=== PATIENT | female | born 1945 | race Hispanic/Latino ===

== ENCOUNTER 2018-03-17 08:27 | Inpatient (IN) | payer MEDICARE ==
[2018-03-17 08:27] VITALS: BMI 17.8
--- NOTE | 2018-03-17 09:02 | C.PDOC ---
History Of Present Illness 72 y/o female with a PMHx of emphysema and abdominal aneurysm presents to the ED for evaluation s/p near syncope. Patient states she felt fine going to work today, then developed a headache with gradual onset. No thunderclap onset. Pain is rated 8/10, she states this is not the worst headache of her life. 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 Patient states she then became sweaty throughout and felt near syncopal so she sat down. There was no LOC or fall. Otherwise she denies any chest pain, palpitations, fever, chills, abdominal pain, nausea, vomiting, body aches, or urinary symptoms. States she has somewhat of a chronic cough attributed to her emphysema, denies any sputum production or other associated symptoms. Time Seen by Provider: 03/17/18 08:38 Chief Complaint (Nursing): Dizziness/Lightheaded History Per: Patient History/Exam Limitations: no limitations Onset/Duration Of Symptoms: Hrs Current Symptoms Are (Timing): Still Present Past Medical History Reviewed: Historical Data, Nursing Documentation, Vital Signs Vital Signs: Last Vital Signs Temp 97.5 F L 03/17/18 08:42 Pulse 68 03/17/18 08:42 Resp 20 03/17/18 08:42 BP 129/52 L 03/17/18 08:42 Pulse Ox 90 L 03/17/18 08:42 - Medical History PMH: Emphysema Other PMH: Abdominal aneurysm Surgical History: Tonsillectomy - [facility] Procedures LOCAL DESTR OVA LES NEC (09/17/12) OTH LYSIS-PERITONEAL ADHES (09/17/12) OTH REMOVE BOTH OVARIES/TUBES (09/17/12) SM BOWEL SEGMENT ISOLAT (09/17/12) Family History: States: Unknown Family Hx - Social History Hx Alcohol Use: No Hx Substance Use: No - Immunization History Hx Tetanus Toxoid Vaccination: No Hx Influenza Vaccination: No Hx Pneumococcal Vaccination: Yes Review Of Systems Except As Marked, All Systems Reviewed And Found Negative. Constitutional: Positive for: Sweats. Negative for: Fever, Chills Eyes: Negative for: Vision Change Cardiovascular: Negative for: Chest Pain, Palpitations Respiratory: Positive for: Cough (chronic per pt). Negative for: Pleuritic Pain, Sputum Gastrointestinal: Negative for: Nausea, Vomiting Musculoskeletal: Negative for: Neck Pain Neurological: Positive for: Headache, Dizziness (near syncopal). Negative for: Weakness, Numbness, Change in Speech, Confusion, Altered Mental Status Physical Exam - Physical Exam Appears: Non-toxic, No Acute Distress, Other (Thin, frail appearing, speaking in full sentences) Skin: Warm, Dry, No Rash Head: Atraumatic, Normacephalic Eye(s): bilateral: Normal Inspection, PERRL, EOMI Oral Mucosa: Dry (and pink) Neck: Normal ROM Chest: Symmetrical Cardiovascular: Rhythm Regular, No Murmur Respiratory: Decreased Breath Sounds (on the right), Rales (Crackles to left base) Gastrointestinal/Abdominal: Bowel Sounds (active), Soft, No Tenderness, No Mass, No Distention Back: Normal Inspection, No CVA Tenderness, No Vertebral Tenderness Extremity: Bilateral: Atraumatic, No Pedal Edema, Normal Color And Temperature Neurological/Psych: Oriented x3, Normal Cranial Nerves ED Course And Treatment - Laboratory Results Result Diagrams: 03/19/18 06:08 03/19/18 06:08 ECG: Interpreted By Me, Viewed By Me ECG Rhythm: Sinus Rhythm ECG Interpretation: No Acute Changes Interpretation Of ECG: NSR @ 66 bpm, normal intervals, normal axis, no ST el evations O2 Sat by Pulse Oximetry: 90 Pulse Ox Interpretation: Abnormal - CT Scan/US CT Head (Code Stroke) Other Rad Studies (CT/US): Read By Radiologist, Radiology Report Reviewed CT/US Interpretation: Accession No. : [id number]. Patient Name / ID : POLINA DOS SANTOS I / [id number]. Exam Date : 03/17/2018 09:46:08 ( Approved ). Study Comment : Sex / Age : F / [id number]. Creator : Tejinder Contreras MD. Dictator : Tejinder Contreras MD. Ornamenter : Mop Handle Assembler : Tejinder Contreras MD. Approver2 : Report Date : 03/17/2018 10:27:41. My Comment : . Date of service: 03/17/2018. PROCEDURE: CT HEAD WITHOUT CONTRAST. HISTORY: Code Stroke. COMPARISON: None available. TECHNIQUE: Axial computed tomography images were obtained through the head/brain without intravenous contrast. Radiation dose: Total exam DLP = 920.08 mGy-cm. This CT exam was performed using one or more of the following dose reduction techniques: Automated exposure control, adjustment of the mA and/or kV according to patient size, and/or use of iterative reconstruction technique. FINDINGS: HEMORRHAGE: There is extensive hemorrhage which predominates subarachnoid. Subarachnoid hemorrhage is identified at the interhemispheric fissure and sylvian fissures bilaterally with intraventricular hemorrhage distending the left lateral ventricle mildly as well as the 3rd ventricle minimally. Hemorrhage identified within the right lateral ventricle on a wemw-bb-vtoqpjfe basis and moderately distends the 4th ventricle. Mild hydrocephalus felt to present distending the frontal horns of the bilateral lateral ventricles, right greater than left with the 4th ventricle distended moderately. Intraparenchymal hemorrhage is identified at the inferomedial left frontal lobe. No definite additional intraparenchymal hemorrhage. A hury-eo-ialupqla hemorrhage is seen in the basilar cisterns as well as suprasellar cistern without deformity of the carrie or medulla. Mild rightward midline shift of 4.2 mm. Consider potential aneurysm rupture as etiology. Underlying lesion not excluded. Limited edema is seen surrounding the low in left frontal intraparenchymal hemorrhage. No definite a dditional parenchymal edema appreciable. BRAIN: See hemorrhage section above. VENTRICLES: See hemorrhage section above. CALVARIUM: Unremarkable. PARANASAL SINUSES: Unremarkable as visualized. No significant inflammatory changes. MASTOID AIR CELLS: Unremarkable as visualized. No inflammatory changes. OTHER FINDINGS: None. IMPRESSION: Extensive subarachnoid hemorrhage is identified particularly involving the bilateral frontal and temporal lobes but also into the basilar cisterns as discussed above. Intraventricular hemorrhage mildly distends the left lateral ventricle body and the 4th ventricle but also involves the right lateral ventricle and 3rd ventricles. Hydrocephalus appears to be developing due to intraventricular hemorrhage. There is a mild rightward midline shift of 4.2 mm. There is no deformity of the brainstem or edema at this time. Left frontal intraparenchymal hemorrhage exhibits limited local edema. Continued clinical and cross-sectional imaging follow-up are advised. Findings discussed with Dr. Funk with written down and read back verification, 03/03, 9:56 a.m.. Critical Care Time - Critical Care Note Total Time (in mins): 90 Documented critical care: time excludes all time spent performing seperately billable procedures. Endotracheal Intubation - Endotracheal Intubation Intubated With ETT Size: 8 Blade Type Used: Curved Indication: Airway Protection Intubated: Orally Pre-Intubation Airway Assessment: Ventilated And Oxygenated Medications Used During Pre-Intubation: Etomidate Paralyzed With: Succinylcholine Post-Intubation Assessment: ETT Secured AT (cm): (19), Breath Sounds Equal Bilat, Placement Confirmed Via CXR, Color Change W/End Tidal CO2 Detector Medical Decision Making Medical Decision Making: Impression: Headache, work-up for near syncope Plan: - EKG - Chest x-ray - Labs - CT Head - 975 mg PO Tylenol Progress/Updates: 9:18 Called to bedside, patient became unresponsive. Pupils equal and reactive. HR dropped to 40s, patient noted to be hypotensive and foaming at the mouth. Patient intubated with 8-0 ETT, direct laryngoscopy. Respiratory at bedside. Code Stroke initiated. Patient immediately en route to CT scan. 9:[address] Taylor, who recommends 1000mg Keppra and CTA of the head/neck. 9:48 Received call from community planning technician, + large subarachnoid hemorrhage on scan. While at CT, patient became bradycardic and was brought back down prior to CTA being done. Dr. Taylor notified, still wants CTA to rule out aneurysm. Cancelled order for head/neck, will order new CTA. 10:10 CT Head report still not available, paged radiology. 10:28 CT report published. Paged Dr. Bazan/Alfredo for neurosurg consult. Awaiting call back. 10:40 Received call back from Dr. Fuentes, requests that patient be held in the ED - He is 3 minutes away and is coming to evaluate patient 10:55 Dr. Fuentes is at bedside, evaluating patient. 10:59 Dr. Fuentes spoke to the family re severity of brain injury and poor prognosis. Family informed Dr. Fuentes that patient has DNR at home. Instructed family that they either need to bring the document to the hospital or admitting doctor will have them complete a new one. Paged medicine. Will admit patient to medical service, discussed with Dr. Hawley and accepted. 11:05 Dr. Tavera pageslick for ICU consult, will come to evaluate patient in the ED. 11:15 Dr. Tavera evaluating patient at bedside. Patient accepted to ICU for diagnosis of intracranial hemorrhage. Disposition Counseled Patient/Family Regarding: Studies Performed, Diagnosis - Disposition Disposition: HOSPITALIZED Disposition Time: 11:15 Condition: CRITICAL - POA Core Measure Indicators: Code Stroke - Clinical Impression Clinical Impression: Subarachnoid hemorrhage - Scribe Statement The provider has reviewed the documentation as recorded by the Esther Morrison Provider Attestation: All medical record entries made by the Esther were at my direction and personall y dictated by me. I have reviewed the chart and agree that the record accurately reflects my personal performance of the history, physical exam, medical decision making, and the department course for this patient. I have also personally directed, reviewed, and agree with the discharge instructions and disposition.
[2018-03-17] MEDS ORDERED: Succinylcholine Chloride 20 mg/ml Syr (5 ml) IV STA (09:10)
[2018-03-17 09:25] LABS: BASO # 0.1 K/uL (0.0-0.2); BASO % 0.8 % (0.0-2.0); EOS # 0.2 K/uL (0.0-0.7); EOS % 3.2 % (0.0-4.0); HEMOGLOBIN 13.1 g/dL (11.0-16.0); LYMPH # 1.8 K/uL (1.0-4.3); LYMPH % 24.6 % (20.0-40.0); MEAN CORPUSCULAR HEMOGLOBIN 28.8 pg (27.0-31.0); MEAN CORPUSCULAR HGB CONC 33.1 g/dL (33.0-37.0); MEAN PLATELET VOLUME 8.3 fL (7.2-11.7); MONO # 0.5 K/uL (0.0-0.8); MONO % 7.5 % (0.0-10.0); NEUT # 4.6 K/uL (1.8-7.0); NEUT % 63.9 % (50.0-75.0); NRBC % 0.1 % (0.0-2.0); RBC 4.54 Mil/uL (3.80-5.20); RED CELL DISTRIBUTION WIDTH 13.5 % (11.5-14.5); WHITE BLOOD COUNT 7.2 K/uL (4.8-10.8)
[2018-03-17 09:34] LABS: INR 1.1; PROTHROMBIN TIME 11.6 SECONDS (9.7-12.2)
[2018-03-17 09:46] LABS: ALB/GLOB RATIO 1.4 (1.0-2.1); ALBUMIN 3.8 g/dL (3.5-5.0); ALT/SGPT 21 U/L (9-52); AST/SGOT 19 U/L (14-36); BLOOD UREA NITROGEN 17 mg/dL (7-17); CALCIUM 8.5 mg/dl (8.6-10.4); GFR NON-AFRICAN AMERICAN > 60
[2018-03-17] MEDS ORDERED: Iodixanol 320 MG/ML 100 ML BOTTLE IV ONE (09:47)
[2018-03-17] MEDS ORDERED: Etomidate 20 mg/10ml Inj IV ONE (10:31)
--- NOTE | 2018-03-17 10:33 | CT ---
Date of service: 03/17/2018 PROCEDURE: CT HEAD WITHOUT CONTRAST. HISTORY: Code Stroke COMPARISON: None available. TECHNIQUE: Axial computed tomography images were obtained through the head/brain without intravenous contrast. Radiation dose: Total exam DLP = 920.08 mGy-cm. This CT exam was performed using one or more of the following dose reduction techniques: Automated exposure control, adjustment of the mA and/or kV according to patient size, and/or use of iterative reconstruction technique. FINDINGS: HEMORRHAGE: There is extensive hemorrhage which predominates subarachnoid. Subarachnoid hemorrhage is identified at the interhemispheric fissure and sylvian fissures bilaterally with intraventricular hemorrhage distending the left lateral ventricle mildly as well as the 3rd ventricle minimally. Hemorrhage identified within the right lateral ventricle on a fznh-zm-zpxolxfg basis and moderately distends the 4th ventricle. Mild hydrocephalus felt to present distending the frontal horns of the bilateral lateral ventricles, right greater than left with the 4th ventricle distended moderately. Intraparenchymal hemorrhage is identified at the inferomedial left frontal lobe. No definite additional intraparenchymal hemorrhage. A bfvm-fl-hfpxdmva hemorrhage is seen in the basilar cisterns as well as suprasellar cistern without deformity of the carrie or medulla. Mild rightward midline shift of 4.2 mm. Consider potential aneurysm rupture as etiology. Underlying lesion not excluded. Limited edema is seen surrounding the low in left frontal intraparenchymal hemorrhage. No definite additional parenchymal edema appreciable. BRAIN: See hemorrhage section above. VENTRICLES: See hemorrhage section above. CALVARIUM: Unremarkable. PARANASAL SINUSES: Unremarkable as visualized. No significant inflammatory changes. MASTOID AIR CELLS: Unremarkable as visualized. No inflammatory changes. OTHER FINDINGS: None. IMPRESSION: Extensive subarachnoid hemorrhage is identified particularly involving the bilateral frontal and temporal lobes but also into the basilar cisterns as discussed above. Intraventricular hemorrhage mildly distends the left lateral ventricle body and the 4th ventricle but also involves the right lateral ventricle and 3rd ventricles. Hydrocephalus appears to be developing due to intraventricular hemorrhage. There is a mild rightward midline shift of 4.2 mm. There is no deformity of the brainstem or edema at this time. Left frontal intraparenchymal hemorrhage exhibits limited local edema. Continued clinical and cross-sectional imaging follow-up are advised. Findings discussed with Dr. Funk with written down and read back verification, 03/17/2018, 9:56 a.m..
--- NOTE | 2018-03-17 11:09 | RAD ---
Date of service: 03/17/2018 HISTORY: Code Stroke COMPARISON: No prior. FINDINGS: LUNGS: Limited exam study rotated towards the left. As well as patient's obvious severe dextroscoliosis No gross consolidation seen. Probable biapical pleural thickening. The endotracheal tube tip approximately 5 cm from the jaime. PLEURA: No significant pleural effusion identified, no pneumothorax apparent. CARDIOVASCULAR: No aortic atherosclerotic calcification present. Cardiomegaly suspect No significant appearing pulmonary venous congestion. OSSEOUS STRUCTURES: Severe dextroscoliosis. VISUALIZED UPPER ABDOMEN: NG tube tip in stomach OTHER FINDINGS: None. IMPRESSION: Limited exam for reasons stated above. No acute cardiopulmonary pathology noted. Other findings as above.
[2018-03-17] MEDS ORDERED: Sodium Chloride 0.9% 1,000 ML IV ONE (12:01)
[2018-03-17] MEDS ORDERED: Sodium Chloride 0.9% 1,000 ML ONE (12:07)
[2018-03-17] MEDS ORDERED: Petrolatum Oint Foilpak (5 gm) ONE (13:11)
--- NOTE | 2018-03-17 13:48 | CP.PCM.CON ---
History of Present Illness - History of Present Illness History of Present Illness: 72 yr old woman who came in with a mild diaphoresis, and headache all over head, who was at work as a food prep production assistant. She came in and was speaking to attending physician DR. Funk, when she suddenly became unresponsive. CT head was done and shows massive hemorrhage, that appears to be an aneurysmal burst. She has been terminally extubated and has brain stem reflexes intact. ROS: not obtainable. PMH/PSH: as per chart FH/SH; Has several children. No tobacco, no etoh. All: benzocaine. On exam: +corneals, +gag, +dolls eyes. posturing to sternal rub. no spontaneous movement. +1 dtr ul and ll bl. Toes downgoing. NO clonus. Past Patient History - Past Social History Smoking Status: Heavy Smoker > 10 Cigarettes Daily - PULMONARY Hx Emphysema: Yes - GASTROINTESTINAL Other/Comment: gastric aneurysm - PSYCHIATRIC Hx Substance Use: No - SURGICAL HISTORY Hx Tonsillectomy: Yes - ANESTHESIA Hx Anesthesia: No Hx Anesthesia Reactions: No Meds Allergies/Adverse Reactions: Allergies Allergy/AdvReac Type Severity Reaction Status Date / Time benzocaine Allergy RASH Verified 03/17/18 08:37 - Medications Medications: Current Medications Levetiracetam 1,000 mg/ (Dextrose) 110 mls @ 420 mls/hr IVPB Q12H ANNALISE Last Admin: 03/17/18 10:41 Dose: 420 mls/hr Results - Vital Signs Recent Vital Signs: Last Vital Signs Temp 97.5 F L 03/17/18 08:42 Pulse 78 03/17/18 13:15 Resp 14 03/17/18 13:15 BP 119/50 L 03/17/18 13:15 Pulse Ox 99 03/17/18 13:15 - Labs Result Diagrams: 03/18/18 06:56 03/18/18 06:56 Labs: Laboratory Results - last 24 hr 03/17/18 03/17/18 03/17/18 08:41 09:17 09:17 WBC 7.2 RBC 4.54 Hgb 13.1 Hct 39.5 MCV 87.0 MCH 28.8 MCHC 33.1 RDW 13.5 Plt Count 374 D MPV 8.3 Neut % (Auto) 63.9 Lymph % (Auto) 24.6 Dukes % (Auto) 7.5 Eos % (Auto) 3.2 Baso % (Auto) 0.8 Neut # (Auto) 4.6 Lymph # (Auto) 1.8 Dukes # (Auto) 0.5 Eos # (Auto) 0.2 Baso # (Auto) 0.1 PT 11.6 INR 1.1 APTT 31 Sodium Potassium Chloride Carbon Dioxide Anion Gap BUN Creatinine Est GFR ( Amer) Est GFR (Non-Af Amer) POC Glucose (mg/dL) 123 H Random Glucose Hemoglobin A1c Calcium Total Bilirubin AST ALT Alkaline Phosphatase Total Creatine Kinase CK-MB (Mass) Troponin I Total Protein Albumin Globulin Albumin/Globulin Ratio Blood Type Antibody Screen 03/17/18 03/17/18 03/17/18 09:17 09:19 09:28 WBC RBC Hgb Hct MCV MCH MCHC RDW Plt Count MPV Neut % (Auto) Lymph % (Auto) Dukes % (Auto) Eos % (Auto) Baso % (Auto) Neut # (Auto) Lymph # (Auto) Dukes # (Auto) Eos # (Auto) Baso # (Auto) PT INR APTT Sodium 137 Potassium 4.5 Chloride 102 Carbon Dioxide 31 H Anion Gap 9 L BUN 17 Creatinine 0.6 L Est GFR ( Amer) > 60 Est GFR (Non-Af Amer) > 60 POC Glucose (mg/dL) 112 H Random Glucose 141 H D Hemoglobin A1c 5.7 Calcium 8.5 L Total Bilirubin 0.3 AST 19 ALT 21 Alkaline Phosphatase 74 Total Creatine Kinase 44 CK-MB (Mass) 0.50 Troponin I < 0.0120 Total Protein 6.5 Albumin 3.8 Globulin 2.7 Albumin/Globulin Ratio 1.4 Blood Type Antibody Screen 03/17/18 09:35 WBC RBC Hgb Hct MCV MCH MCHC RDW Plt Count MPV Neut % (Auto) Lymph % (Auto) Dukes % (Auto) Eos % (Auto) Baso % (Auto) Neut # (Auto) Lymph # (Auto) Dukes # (Auto) Eos # (Auto) Baso # (Auto) PT INR APTT Sodium Potassium Chloride Carbon Dioxide Anion Gap BUN Creatinine Est GFR ( Amer) Est GFR (Non-Af Amer) POC Glucose (mg/dL) Random Glucose Hemoglobin A1c Calcium Total Bilirubin AST ALT Alkaline Phosphatase Total Creatine Kinase CK-MB (Mass) Troponin I Total Protein Albumin Globulin Albumin/Globulin Ratio Blood Type AB POSITIVE Antibody Screen Negative - EKG Data When Compared to Previous EKG: No Significant Change Assessment & Plan - Assessment and Plan (Free Text) Assessment: CT head: shows intraventricular bleed that is present in bilateral ventricles and in the fourth ventricle as well. +subarachnoid component. Spoke to family. No intubation and DNR DNI. Neurosurgery states no intervention at this time. A/P: 72 yr old woman with most likely Left MCA aneurysmal bleed with poor prognosis, who is now DNR DNI Plan: 1 Recommend FFP [address] head[address] Thank you Dr. Taylor Neurology
--- NOTE | 2018-03-17 14:13 | CP.PCM.CON ---
<Fazal Suresh - Last Filed: 03/17/18 15:10> History of Present Illness - History of Present Illness History of Present Illness: PGY-1 ICU consult note for Dr Tavera service Patient is a 72 year old female with pmhx of emphysema, abdominal aneurysm and tonsillectomy, was seen in the ED after code sepsis was called on patient. Patient is not verbal, family, including grand daughter Aracelis Loomis, at bedside, contributes to HPI. Patient was at work this morning when she had a headache that worsened with time. Patient had near syncopal episodes and came to ER. Patient did not have a fall or LOC. Patient became unresponsive and hypotensive at ER, patient intubated, code stroke was called, brought to CT scan which shows large subarachnoid hemorrhage, CTA was to be done, when she became bradycardia on route to CTA. Patient remains not responding, intubated, with family at bedside. ROS unattainable due to patient status. PMHX: Emphysema, abdominal aneurysm ShX: Tonsillectomy All: benzocaine Meds: see record Sochx: unttainable due to patient's status Past Patient History - Past Social History Smoking Status: Heavy Smoker > 10 Cigarettes Daily - PULMONARY Hx Emphysema: Yes - GASTROINTESTINAL Other/Comment: gastric aneurysm - PSYCHIATRIC Hx Substance Use: No - SURGICAL HISTORY Hx Tonsillectomy: Yes - ANESTHESIA Hx Anesthesia: No Hx Anesthesia Reactions: No Meds Allergies/Adverse Reactions: Allergies Allergy/AdvReac Type Severity Reaction Status Date / Time benzocaine Allergy RASH Verified 03/17/18 08:37 Penicillins Allergy RASH Verified 03/18/18 13:38 - Medications Medications: Current Medications Levetiracetam 1,000 mg/ (Dextrose) 110 mls @ 420 mls/hr IVPB Q12H [facility] Last Admin: 03/17/18 10:41 Dose: 420 mls/hr Physical Exam - Constitutional Appears: In Acute Distress - Head Exam Head Exam: ATRAUMATIC - Eye Exam Eye Exam: Normal appearance. absent: EOMI - ENT Exam ENT Exam: Mucous Membranes Dry - Neck Exam Neck exam: Negative for: Full Rom - Respiratory Exam Respiratory Exam: Accessory Muscle Use, Rhonchi, Respiratory Distress. absent: Wheezes - Cardiovascular Exam Cardiovascular Exam: Irregular Rhythm - GI/Abdominal Exam GI & Abdominal Exam: Soft - Extremities Exam Extremities exam: Positive for: normal inspection. Negative for: full ROM - Back Exam Back exam: NORMAL INSPECTION - Neurological Exam Additional comments: not Alert, not Oriented, not awake, non verbal Corneal reflex intact does not respond to sternal rub - Expanded Neurological Exam Expanded Coma Scale Eye Opening: None Coma Scale Motor Response: None Coma Scale Verbal: None Coma Scale Total: 3 - Skin Skin Exam: Dry Results - Vital Signs Recent Vital Signs: Last Vital Signs Temp 97.5 F L 03/17/18 08:42 Pulse 78 03/17/18 13:15 Resp 14 03/17/18 13:15 BP 119/50 L 03/17/18 13:15 Pulse Ox 90 L 03/17/18 13:39 - Labs Result Diagrams: 03/17/18 09:17 03/17/18 09:17 Labs: Laboratory Results - last 24 hr 03/17/18 03/17/18 03/17/18 08:41 09:17 09:17 WBC 7.2 RBC 4.54 Hgb 13.1 Hct 39.5 MCV 87.0 MCH 28.8 MCHC 33.1 RDW 13.5 Plt Count 374 D MPV 8.3 Neut % (Auto) 63.9 Lymph % (Auto) 24.6 [place] % (Auto) 7.5 Eos % (Auto) 3.2 Baso % (Auto) 0.8 Neut # (Auto) 4.6 Lymph # (Auto) 1.8 [place] # (Auto) 0.5 Eos # (Auto) 0.2 Baso # (Auto) 0.1 PT 11.6 INR 1.1 APTT 31 Sodium Potassium Chloride Carbon Dioxide Anion Gap BUN Creatinine Est GFR ( Amer) Est GFR (Non-Af Amer) POC Glucose (mg/dL) 123 H Random Glucose Hemoglobin A1c Calcium Total Bilirubin AST ALT Alkaline Phosphatase Total Creatine Kinase CK-MB (Mass) Troponin I Total Protein Albumin Globulin Albumin/Globulin Ratio Blood Type Antibody Screen 03/17/18 03/17/18 03/17/18 09:17 09:19 09:28 WBC RBC Hgb Hct MCV MCH MCHC RDW Plt Count MPV Neut % (Auto) Lymph % (Auto) [place] % (Auto) Eos % (Auto) Baso % (Auto) Neut # (Auto) Lymph # (Auto) [place] # (Auto) Eos # (Auto) Baso # (Auto) PT INR APTT Sodium 137 Potassium 4.5 Chloride 102 Carbon Dioxide 31 H Anion Gap 9 L BUN 17 Creatinine 0.6 L Est GFR ( Amer) > 60 Est GFR (Non-Af Amer) > 60 POC Glucose (mg/dL) 112 H Random Glucose 141 H D Hemoglobin A1c 5.7 Calcium 8.5 L Total Bilirubin 0.3 AST 19 ALT 21 Alkaline Phosphatase 74 Total Creatine Kinase 44 CK-MB (Mass) 0.50 Troponin I < 0.0120 Total Protein 6.5 Albumin 3.8 Globulin 2.7 Albumin/Globulin Ratio 1.4 Blood Type Antibody Screen 03/17/18 09:35 WBC RBC Hgb Hct MCV MCH MCHC RDW Plt Count MPV Neut % (Auto) Lymph % (Auto) [place] % (Auto) Eos % (Auto) Baso % (Auto) Neut # (Auto) Lymph # (Auto) [place] # (Auto) Eos # (Auto) Baso # (Auto) PT INR APTT Sodium Potassium Chloride Carbon Dioxide Anion Gap BUN Creatinine Est GFR ( Amer) Est GFR (Non-Af Amer) POC Glucose (mg/dL) Random Glucose Hemoglobin A1c Calcium Total Bilirubin AST ALT Alkaline Phosphatase Total Creatine Kinase CK-MB (Mass) Troponin I Total Protein Albumin Globulin Albumin/Globulin Ratio Blood Type AB POSITIVE Antibody Screen Negative Assessment & Plan - Assessment and Plan (Free Text) Assessment: 72 year old female pmhx of emphysema, and aneurysm came to ED for headaches, become unresponsive in ED. head CT shows subarachnoid hemorrhage, intraverntricular hemorrhage, code stroke called, Patient intubated at time of encounter. no surgical intervention at this time as per neurosx Plan: Neuro: - not awake, not oriented, intubated at time of encounter - Family requested to terminally extubate patient - Boni ford Ms Aracelis Branch signed extubation form, in chart - will continue supportive tx - Dr Branch - no surgical intervention for patient - Neuro consult - Dr Taylor Cardio - On tele Respiratory - Terminally extubation at family's request - Desaturating - patient 89% O2 sat PPX - patient is DNR/DNI as per family request - Copy in chart/ order placed Dispo: As per family request, pt extubated, supportive tx as per medical team, no surgical intervention, patient does not need ICU at this time. grand liliana Low, is pts decision maker for patient Plan discussed with Dr Liang Suresh, PGY-1 - Date & Time Date: 03/17/18 Time: 13:00 <Luke Tavera - Last Filed: 03/18/18 17:01> Meds - Medications Medications: Current Medications Albuterol/Ipratropium (Duoneb 3 Mg/0.5 Mg (3 Ml) Ud) 3 ml INH RQ6 [facility] Last Admin: 03/18/18 14:30 Dose: 3 ml Levetiracetam 1,000 mg/ (Dextrose) 110 mls @ 420 mls/hr IVPB Q12H [facility] Last Admin: 03/18/18 10:31 Dose: 420 mls/hr Sodium Chloride (Sodium Chloride 0.9%) 1,000 mls @ 50 mls/hr IV .Q20H [facility] Last Admin: 03/18/18 16:42 Dose: Not Given Results - Vital Signs Recent Vital Signs: Last Vital Signs Temp 98.3 F 03/18/18 16:00 Pulse 58 L 03/18/18 16:00 Resp 24 03/18/18 16:00 BP 177/83 H 03/18/18 15:57 Pulse Ox 95 03/18/18 16:00 - Labs Result Diagrams: 03/18/18 06:56 03/18/18 06:56 Labs: Laboratory Results - last 24 hr 03/18/18 03/18/18 03/18/18 06:56 06:56 06:56 WBC 12.8 H D RBC 4.08 Hgb 11.7 Hct 35.6 MCV 87.3 MCH 28.7 MCHC 32.9 L RDW 14.3 Plt Count 328 MPV 8.5 Sodium 137 Potassium 3.7 Chloride 107 Carbon Dioxide 23 Anion Gap 10 BUN 12 Creatinine 0.8 Est GFR ( Amer) > 60 Est GFR (Non-Af Amer) > 60 POC Glucose (mg/dL) Random Glucose 128 H Hemoglobin A1c 5.7 Calcium 8.3 L Iron TIBC % Saturation Total Bilirubin 0.5 Direct Bilirubin 0.3 AST 30 ALT 28 Alkaline Phosphatase 74 Total Protein 6.1 L Albumin 3.5 Globulin 2.6 Albumin/Globulin Ratio 1.4 Triglycerides 66 Cholesterol 166 LDL Cholesterol Direct 110 HDL Cholesterol 55 Vitamin B12 172 L Folate 14.7 TSH 3rd Generation 0.26 L 01/16/19 01/16/19 01/16/19 06:56 07:24 16:27 WBC RBC Hgb Hct MCV MCH MCHC RDW Plt Count MPV Sodium Potassium Chloride Carbon Dioxide Anion Gap BUN Creatinine Est GFR ( Amer) Est GFR (Non-Af Amer) POC Glucose (mg/dL) 125 H 123 H Random Glucose Hemoglobin A1c Calcium Iron 17 L TIBC 242 L % Saturation 7 L Total Bilirubin Direct Bilirubin AST ALT Alkaline Phosphatase Total Protein Albumin Globulin Albumin/Globulin Ratio Triglycerides Cholesterol LDL Cholesterol Direct HDL Cholesterol Vitamin B12 Folate TSH 3rd Generation Attending/Attestation - Attestation I have personally seen and examined this patient.: Yes I have fully participated in the care of the patient.: Yes I have reviewed all pertinent clinical information: Yes Notes (Text): Patient seen and examined in the emergency room Admitted after she passed out with large intracerebral bleed and blood in the ventricles Patient was terminally extubated as per family request and patient wishes Family signed DNR DNI Seen by neurosurgery with no neurosurgical intervention
[2018-03-17] MEDS: Sodium Chloride 0.9% 1,000 ML IV SCH (22:12)
[2018-03-18 07:12] LABS: HEMOGLOBIN 11.7 g/dL (11.0-16.0); MEAN CELL VOLUME 87.3 fL (81.0-99.0); MEAN CORPUSCULAR HEMOGLOBIN 28.7 pg (27.0-31.0); MEAN CORPUSCULAR HGB CONC 32.9 g/dL (33.0-37.0); MEAN PLATELET VOLUME 8.5 fL (7.2-11.7); RBC 4.08 Mil/uL (3.80-5.20); RED CELL DISTRIBUTION WIDTH 14.3 % (11.5-14.5)
[2018-03-18 07:17] LABS: WHITE BLOOD COUNT 12.8 K/uL (4.8-10.8)
[2018-03-18 07:38] LABS: ALB/GLOB RATIO 1.4 (1.0-2.1); ALBUMIN 3.5 g/dL (3.5-5.0); ALT/SGPT 28 U/L (9-52); AST/SGOT 30 U/L (14-36); BILIRUBIN,DIRECT 0.3 mg/dL (0.0-0.4); BLOOD UREA NITROGEN 12 mg/dL (7-17); CALCIUM 8.3 mg/dl (8.6-10.4); GFR NON-AFRICAN AMERICAN > 60; HDL CHOLESTEROL 55 mg/dL (30-70)
[2018-03-18 07:45] LABS: IRON 17 ug/dL (37-170)
[2018-03-18 07:48] LABS: LDL CHOLESTEROL 110 mg/dL (0-129)
[2018-03-18 07:53] LABS: % IRON SATURATION 7 (20-55); TOTAL IRON BINDING CAPACITY 242 ug/dL (250-450)
[2018-03-18 08:34] LABS: FOLATE 14.7 ng/mL
--- NOTE | 2018-03-18 09:36 | HP ---
The patient was seen and examined at bedside on 03/17/2018. CHIEF COMPLIANT: Near syncope. HISTORY OF PRESENT ILLNESS: Ms. Simran Roberts is a 72-year-old female with past medical history of emphysema, abdominal aneurysm, came to emergency department for evaluation of having near syncope. The patient states that she felt fine, went to work today. She was working at school cafeteria. Then, she developed headache with gradual onset. No thunderclap onset. Pain started like at 8/10. She states this is not the worst headache of her life. No pain medication was taken. The patient states that she then became sweaty throughout and felt near syncope, so she sat down. There was no loss of consciousness so far. Denies any chest pain, palpitation, chills, abdominal pain, and nausea, vomiting, diarrhea in the emergency room. The patient states that she has somewhat chronic cough attributed to her emphysema. Denies any sputum production in the emergency room. The patient had a near syncope episode and came to the emergency room. The patient did not have a fall. As mentioned, the patient became unresponsive and hypertensive in the emergency room. The patient was intubated. Code stroke was called, brought to CAT scan, which showed large subarachnoid hemorrhage. CTA was done when she became bradycardic on routine to CTA. The patient remained unresponsive, intubated. The patient has 5 children, I spoke to the middle one. According to son, the sister and sister's daughter, niece, make the patient DNR/DNI. According to the patient's son and ER, the patient never wanted intubation, but when I saw the patient, the patient was extubated and was on the floor. Discussion done with patient's son and hospice consult called. PAST MEDICAL HISTORY: Emphysema and abdominal aneurysm. PAST SURGICAL HISTORY: Tonsillectomy. ALLERGIES: BENZOCAINE. MEDICATION: Dextrose. PHYSICAL EXAMINATION: VITAL SIGNS: Temperature 98.5, pulse 80 , blood pressure 133/53, respiratory rate 20, nonlabored, deep and irregular, and oxygenation 88%. HEENT: Head normocephalic and atraumatic. I cannot see any signs of an injury on the head. Eyes closed. Nose patent. Mucous membrane moist. NECK: Supple. No carotid bruits or thyromegaly. CHEST: Bilaterally symmetrical. HEART: S1 and S2 positive. LUNGS: Clear to auscultation. ABDOMEN: Soft. Bowel sounds present. No organomegaly. EXTREMITIES: No edema. No cyanosis. NEUROLOGIC: The patient has closed eyes. Once in a while moving extremities. LABORATORY DATA: White blood cell 7.2, hemoglobin 13.1, hematocrit 39.5, and platelets 374. Sodium 137, potassium 4.5, BUN 12, creatinine 1.6, glucose 112, calcium 8.5. ASSESSMENT AND PLAN: Ms. 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 Length of time discussion done with patient's doctor, Dr. Funk. She was informing me about the patient's condition. Suddenly, the patient became unresponsive. Computed tomography of head was done and showed massive hemorrhage that appears to be aneurysm burst. She has been internally extubated and her brainstem reflexes are intact. As per patient's family's request, still discussion was done with patient's son. The plan is to make the patient comfortable. I called comfort care team. Computed axial tomography scan shows intraventricular bleed that is present in bilateral ventricles and in the fourth ventricle as well as left subarachnoid component. Neurologist spoke to the family, and according to family, everybody said that no intubation and do not resuscitate/do not intubate. Neurosurgery states that no intervention at this time. Looks like left MCV aneurysmal bleed with poor prognosis, who is finally do not resuscitate and do not intubate. Plan was to give fresh frozen plasma, repeat CT. Appreciating Dr. Olivo' input. Discussion was done with the patient's nursing staff. We will follow up. Ngoc Hawley MD JULIETA
--- NOTE | 2018-03-18 11:49 | CP.PCM.PN ---
Subjective - Date & Time of Evaluation Date of Evaluation: 03/18/18 Time of Evaluation: 11:30 - Subjective Subjective: 72 yr old woman who has massive ICH with subarachnoid hemorrhage, and intraventricular component, not a candidate for surgery, who is now reported by family to have spoken and followed commands. 0n my exam., she was withdrawing to sternal rub, opening eyes but not following commands. She moves both her arms equally with no weakness observed. There was no other spontaneous movement noted. ROS; not obtainable. ON exam: +corneals, +dolls, +gag, PERRL. rest of exam as above. Objective - Vital Signs/Intake and Output Vital Signs (last 24 hours): Temp Pulse Resp BP Pulse Ox 98.2 F 78 20 128/57 L 94 L 03/18/18 07:00 03/18/18 07:00 03/18/18 07:00 03/18/18 07:00 03/18/18 07:00 Intake and Output: 03/18/18 03/18/18 06:59 18:59 Intake Total 1100 Output Total 0 Balance 1100 - Medications Medications: Current Medications Levetiracetam 1,000 mg/ (Dextrose) 110 mls @ 420 mls/hr IVPB Q12H [facility] Last Admin: 03/18/18 10:31 Dose: 420 mls/hr Sodium Chloride (Sodium Chloride 0.9%) 1,000 mls @ 50 mls/hr IV .Q20H [facility] Last Admin: 03/17/18 22:12 Dose: 50 mls/hr - Labs Labs: 03/18/18 06:56 03/18/18 06:56 PT 11.6 SECONDS (9.7-12.2) 03/17/18 09:17 INR 1.1 03/17/18 09:17 APTT 31 SECONDS (21-34) 03/17/18 09:17 Assessment and Plan - Assessment and Plan (Free Text) Assessment: CT head: repeat ct head pending. Original ct head from yesterday, shows massive intracerebral and intraventricular hemorrhage, with subarachnoid hemorrhage with mid line shift. A/P: 72 yr old woman with aneurysmal bleed whose neurological status is improving minimally. Plan: 1. Transfer to ICU 2. Maintian bp in normal limits, consider nifedipine 3. Patient is DNR DNI 4. FFPS [address] head 6. Video EEG after CT head. 7. Neuro checks q [address] Taylor
[2018-03-18] MEDS: Albuterol-Ipratrop 3 mg / 0.5 (3 ml) UD INH SCH ×2 (14:30→19:21)
--- NOTE | 2018-03-18 15:24 | CARD ---
APPROVED REPORT Date of service: 03/17/2018 EKG Measurement Heart [id number] <Conclusion> Normal sinus rhythm with sinus arrhythmia Septal infarct, age undetermined Abnormal ECG
--- NOTE | 2018-03-18 16:31 | CP.CCUPN ---
<Fazal Suresh - Last Filed: 03/18/18 16:31> CCU Objective - Vital Signs / Intake & Output Vital Signs (Last 4 hours): Vital Signs Temp Pulse Resp BP Pulse Ox 03/18/18 16:00 98.3 F 58 L 24 93 L 03/18/18 15:57 59 L 25 H 177/83 H 03/18/18 15:42 108 H 23 152/59 H 89 L 03/18/18 15:27 78 27 H 162/61 H 93 L 03/18/18 15:13 79 26 H 161/72 H 95 03/18/18 15:00 101 H 33 H 137/102 H 93 L 03/18/18 14:43 92 H 27 H 160/88 H 95 03/18/18 14:28 91 H 26 H 131/71 03/18/18 14:12 82 27 H 156/67 H 96 03/18/18 14:00 91 H 28 H 95 03/18/18 13:57 68 25 H 152/65 H 94 L 03/18/18 13:42 86 27 H 155/69 H 95 03/18/18 13:27 94 H 26 H 158/85 H 94 L 03/18/18 13:07 97 H 21 145/70 94 L 03/18/18 13:00 89 30 H 93 L 03/18/18 12:51 82 25 H 154/60 H 93 L 03/18/18 12:36 98 H 33 H 155/79 H 95 Intake and Output (Last 8hrs): Intake & Output 03/18/18 03/18/18 03/18/18 06:59 14:59 22:59 Intake Total 1100 200 100 Output Total 0 Balance 1100 200 100 Intake: Intake, IV Amount 1100 80 Left Antecubital 1100 75 Right Forearm 5 Oral 0 Blood Product 120 100 Output: Urine 0 Urine, Voided 0 Other: # Voids Urine, Voided 1 # Bowel Movements 0 1 1 - Medications Active Medications: Active Medications Generic Name Dose Route Start Last Admin Trade Name Freq PRN Reason Stop Dose Admin Albuterol/Ipratropium 3 ml 03/18/18 14:00 03/18/18 14:30 Duoneb 3 Mg/0.5 Mg (3 Ml) Ud INH 3 ml RQ6 ANNALISE Administration Levetiracetam 1,000 mg/ 110 mls @ 420 mls/hr 03/17/18 10:00 03/18/18 10:31 Dextrose IVPB 420 mls/hr Q12H ANNALISE Administration Sodium Chloride 1,000 mls @ 50 mls/hr 03/17/18 20:00 03/17/18 22:12 Sodium Chloride 0.9% IV 50 mls/hr .Q20H ANNALISE Administration - Patient Studies Lab Studies: Lab Studies 03/18/18 03/18/18 03/18/18 Range/Units 16:27 07:24 06:56 WBC (4.8-10.8) K/uL RBC (3.80-5.20) Mil/uL Hgb (11.0-16.0) g/dL Hct (34.0-47.0) % MCV (81.0-99.0) fL MCH (27.0-31.0) pg MCHC (33.0-37.0) g/dL RDW (11.5-14.5) % Plt Count (130-400) K/uL MPV (7.2-11.7) fL Sodium (132-148) mmol/L Potassium (3.6-5.2) mmol/L Chloride (98-107) mmol/L Carbon Dioxide (22-30) mmol/L Anion Gap (10-20) BUN (7-17) mg/dL Creatinine (0.7-1.2) mg/dL Est GFR ( Amer) Est GFR (Non-Af Amer) POC Glucose (mg/dL) 123 H 125 H (65-110) mg/dL Random Glucose (65-105) mg/dL Hemoglobin A1c (4.2-6.5) % Calcium (8.6-10.4) mg/dl Iron 17 L (37-170) ug/dL TIBC 242 L (250-450) ug/dL % Saturation 7 L (20-55) Total Bilirubin (0.2-1.3) mg/dL Direct Bilirubin (0.0-0.4) mg/dL AST (14-36) U/L ALT (9-52) U/L Alkaline Phosphatase (38-126) U/L Total Protein (6.3-8.3) g/dL Albumin (3.5-5.0) g/dL Globulin (2.2-3.9) gm/dL Albumin/Globulin Ratio (1.0-2.1) Triglycerides (0-149) mg/dL Cholesterol (0-199) mg/dL LDL Cholesterol Direct (0-129) mg/dL HDL Cholesterol (30-70) mg/dL Vitamin B12 (239-931) pg/mL Folate ng/mL TSH 3rd Generation (0.46-4.68) mIU/L 03/18/18 03/18/18 03/18/18 Range/Units 06:56 06:56 06:56 WBC 12.8 H D (4.8-10.8) K/uL RBC 4.08 (3.80-5.20) Mil/uL Hgb 11.7 (11.0-16.0) g/dL Hct 35.6 (34.0-47.0) % MCV 87.3 (81.0-99.0) fL MCH 28.7 (27.0-31.0) pg MCHC 32.9 L (33.0-37.0) g/dL RDW 14.3 (11.5-14.5) % Plt Count 328 (130-400) K/uL MPV 8.5 (7.2-11.7) fL Sodium 137 (132-148) mmol/L Potassium 3.7 (3.6-5.2) mmol/L Chloride 107 (98-107) mmol/L Carbon Dioxide 23 (22-30) mmol/L Anion Gap 10 (10-20) BUN 12 (7-17) mg/dL Creatinine 0.8 (0.7-1.2) mg/dL Est GFR ( Amer) > 60 Est GFR (Non-Af Amer) > 60 POC Glucose (mg/dL) (65-110) mg/dL Random Glucose 128 H (65-105) mg/dL Hemoglobin A1c 5.7 (4.2-6.5) % Calcium 8.3 L (8.6-10.4) mg/dl Iron (37-170) ug/dL TIBC (250-450) ug/dL % Saturation (20-55) Total Bilirubin 0.5 (0.2-1.3) mg/dL Direct Bilirubin 0.3 (0.0-0.4) mg/dL AST 30 (14-36) U/L ALT 28 (9-52) U/L Alkaline Phosphatase 74 (38-126) U/L Total Protein 6.1 L (6.3-8.3) g/dL Albumin 3.5 (3.5-5.0) g/dL Globulin 2.6 (2.2-3.9) gm/dL Albumin/Globulin Ratio 1.4 (1.0-2.1) Triglycerides 66 (0-149) mg/dL Cholesterol 166 (0-199) mg/dL LDL Cholesterol Direct 110 (0-129) mg/dL HDL Cholesterol 55 (30-70) mg/dL Vitamin B12 172 L (239-931) pg/mL Folate 14.7 ng/mL TSH 3rd Generation 0.26 L (0.46-4.68) mIU/L Laboratory Results - last 24 hr 03/18/18 03/18/18 03/18/18 06:56 06:56 06:56 WBC 12.8 H D RBC 4.08 Hgb 11.7 Hct 35.6 MCV 87.3 MCH 28.7 MCHC 32.9 L RDW 14.3 Plt Count 328 MPV 8.5 Sodium 137 Potassium 3.7 Chloride 107 Carbon Dioxide 23 Anion Gap 10 BUN 12 Creatinine 0.8 Est GFR ( Amer) > 60 Est GFR (Non-Af Amer) > 60 POC Glucose (mg/dL) Random Glucose 128 H Hemoglobin A1c 5.7 Calcium 8.3 L Iron TIBC % Saturation Total Bilirubin 0.5 Direct Bilirubin 0.3 AST 30 ALT 28 Alkaline Phosphatase 74 Total Protein 6.1 L Albumin 3.5 Globulin 2.6 Albumin/Globulin Ratio 1.4 Triglycerides 66 Cholesterol 166 LDL Cholesterol Direct 110 HDL Cholesterol 55 Vitamin B12 172 L Folate 14.7 TSH 3rd Generation 0.26 L 03/18/18 03/18/18 03/18/18 06:56 07:24 16:27 WBC RBC Hgb Hct MCV MCH MCHC RDW Plt Count MPV Sodium Potassium Chloride Carbon Dioxide Anion Gap BUN Creatinine Est GFR ( Amer) Est GFR (Non-Af Amer) POC Glucose (mg/dL) 125 H 123 H Random Glucose Hemoglobin A1c Calcium Iron 17 L TIBC 242 L % Saturation 7 L Total Bilirubin Direct Bilirubin AST ALT Alkaline Phosphatase Total Protein Albumin Globulin Albumin/Globulin Ratio Triglycerides Cholesterol LDL Cholesterol Direct HDL Cholesterol Vitamin B12 Folate TSH 3rd Generation Fingerstick Blood Sugar Results: 123 <LiangLuke moss S - Last Filed: 03/18/18 18:18> CCU Objective - Vital Signs / Intake & Output Vital Signs (Last 4 hours): Vital Signs Temp Pulse Resp BP Pulse Ox 03/18/18 17:12 72 21 151/72 H 92 L 03/18/18 17:00 64 26 H 92 L 03/18/18 16:57 99 H 29 H 148/55 L 88 L 03/18/18 16:42 94 H 31 H 150/125 H 81 L 03/18/18 16:27 80 18 162/65 H 87 L 03/18/18 16:12 56 L 11 L 160/69 H 94 L 03/18/18 16:00 98.3 F 58 L 24 93 L 03/18/18 15:57 59 L 25 H 177/83 H 03/18/18 15:42 108 H 23 152/59 H 89 L 03/18/18 15:27 78 27 H 162/61 H 93 L 03/18/18 15:13 79 26 H 161/72 H 95 03/18/18 15:00 101 H 33 H 137/102 H 93 L 03/18/18 14:43 92 H 27 H 160/88 H 95 03/18/18 14:28 91 H 26 H 131/71 Intake and Output (Last 8hrs): Intake & Output 03/18/18 03/18/18 03/18/18 06:59 14:59 22:59 Intake Total 1100 200 300 Output Total 0 Balance 1100 200 300 Intake: Intake, IV Amount 1100 80 Left Antecubital 1100 75 Right Forearm 5 Oral 0 Blood Product 120 300 Output: Urine 0 Urine, Voided 0 Other: # Voids Urine, Voided 1 # Bowel Movements 0 1 1 - Medications Active Medications: Active Medications Generic Name Dose Route Start Last Admin Trade Name Freq PRN Reason Stop Dose Admin Albuterol/Ipratropium 3 ml 03/18/18 14:00 03/18/18 14:30 Duoneb 3 Mg/0.5 Mg (3 Ml) Ud INH 3 ml RQ6 ANNALISE Administration Levetiracetam 1,000 mg/ 110 mls @ 420 mls/hr 03/17/18 10:00 03/18/18 10:31 Dextrose IVPB 420 mls/hr Q12H ANNALISE Administration Sodium Chloride 1,000 mls @ 50 mls/hr 03/17/18 20:00 03/18/18 16:42 Sodium Chloride 0.9% IV Not Given .Q20H ANNALISE - Patient Studies Lab Studies: Lab Studies 03/18/18 03/18/18 03/18/18 Range/Units 16:27 07:24 06:56 WBC (4.8-10.8) K/uL RBC (3.80-5.20) Mil/uL Hgb (11.0-16.0) g/dL Hct (34.0-47.0) % MCV (81.0-99.0) fL MCH (27.0-31.0) pg MCHC (33.0-37.0) g/dL RDW (11.5-14.5) % Plt Count (130-400) K/uL MPV (7.2-11.7) fL Sodium (132-148) mmol/L Potassium (3.6-5.2) mmol/L Chloride (98-107) mmol/L Carbon Dioxide (22-30) mmol/L Anion Gap (10-20) BUN (7-17) mg/dL Creatinine (0.7-1.2) mg/dL Est GFR ( Amer) Est GFR (Non-Af Amer) POC Glucose (mg/dL) 123 H 125 H (65-110) mg/dL Random Glucose (65-105) mg/dL Hemoglobin A1c (4.2-6.5) % Calcium (8.6-10.4) mg/dl Iron 17 L (37-170) ug/dL TIBC 242 L (250-450) ug/dL % Saturation 7 L (20-55) Total Bilirubin (0.2-1.3) mg/dL Direct Bilirubin (0.0-0.4) mg/dL AST (14-36) U/L ALT (9-52) U/L Alkaline Phosphatase (38-126) U/L Total Protein (6.3-8.3) g/dL Albumin (3.5-5.0) g/dL Globulin (2.2-3.9) gm/dL Albumin/Globulin Ratio (1.0-2.1) Triglycerides (0-149) mg/dL Cholesterol (0-199) mg/dL LDL Cholesterol Direct (0-129) mg/dL HDL Cholesterol (30-70) mg/dL Vitamin B12 (239-931) pg/mL Folate ng/mL TSH 3rd Generation (0.46-4.68) mIU/L 03/18/18 03/18/18 03/18/18 Range/Units 06:56 06:56 06:56 WBC 12.8 H D (4.8-10.8) K/uL RBC 4.08 (3.80-5.20) Mil/uL Hgb 11.7 (11.0-16.0) g/dL Hct 35.6 (34.0-47.0) % MCV 87.3 (81.0-99.0) fL MCH 28.7 (27.0-31.0) pg MCHC 32.9 L (33.0-37.0) g/dL RDW 14.3 (11.5-14.5) % Plt Count 328 (130-400) K/uL MPV 8.5 (7.2-11.7) fL Sodium 137 (132-148) mmol/L Potassium 3.7 (3.6-5.2) mmol/L Chloride 107 (98-107) mmol/L Carbon Dioxide 23 (22-30) mmol/L Anion Gap 10 (10-20) BUN 12 (7-17) mg/dL Creatinine 0.8 (0.7-1.2) mg/dL Est GFR ( Amer) > 60 Est GFR (Non-Af Amer) > 60 POC Glucose (mg/dL) (65-110) mg/dL Random Glucose 128 H (65-105) mg/dL Hemoglobin A1c 5.7 (4.2-6.5) % Calcium 8.3 L (8.6-10.4) mg/dl Iron (37-170) ug/dL TIBC (250-450) ug/dL % Saturation (20-55) Total Bilirubin 0.5 (0.2-1.3) mg/dL Direct Bilirubin 0.3 (0.0-0.4) mg/dL AST 30 (14-36) U/L ALT 28 (9-52) U/L Alkaline Phosphatase 74 (38-126) U/L Total Protein 6.1 L (6.3-8.3) g/dL Albumin 3.5 (3.5-5.0) g/dL Globulin 2.6 (2.2-3.9) gm/dL Albumin/Globulin Ratio 1.4 (1.0-2.1) Triglycerides 66 (0-149) mg/dL Cholesterol 166 (0-199) mg/dL LDL Cholesterol Direct 110 (0-129) mg/dL HDL Cholesterol 55 (30-70) mg/dL Vitamin B12 172 L (239-931) pg/mL Folate 14.7 ng/mL TSH 3rd Generation 0.26 L (0.46-4.68) mIU/L Laboratory Results - last 24 hr 03/18/18 03/18/18 03/18/18 06:56 06:56 06:56 WBC 12.8 H D RBC 4.08 Hgb 11.7 Hct 35.6 MCV 87.3 MCH 28.7 MCHC 32.9 L RDW 14.3 Plt Count 328 MPV 8.5 Sodium 137 Potassium 3.7 Chloride 107 Carbon Dioxide 23 Anion Gap 10 BUN 12 Creatinine 0.8 Est GFR ( Amer) > 60 Est GFR (Non-Af Amer) > 60 POC Glucose (mg/dL) Random Glucose 128 H Hemoglobin A1c 5.7 Calcium 8.3 L Iron TIBC % Saturation Total Bilirubin 0.5 Direct Bilirubin 0.3 AST 30 ALT 28 Alkaline Phosphatase 74 Total Protein 6.1 L Albumin 3.5 Globulin 2.6 Albumin/Globulin Ratio 1.4 Triglycerides 66 Cholesterol 166 LDL Cholesterol Direct 110 HDL Cholesterol 55 Vitamin B12 172 L Folate 14.7 TSH 3rd Generation 0.26 L 03/18/18 03/18/18 03/18/18 06:56 07:24 16:27 WBC RBC Hgb Hct MCV MCH MCHC RDW Plt Count MPV Sodium Potassium Chloride Carbon Dioxide Anion Gap BUN Creatinine Est GFR ( Amer) Est GFR (Non-Af Amer) POC Glucose (mg/dL) 125 H 123 H Random Glucose Hemoglobin A1c Calcium Iron 17 L TIBC 242 L % Saturation 7 L Total Bilirubin Direct Bilirubin AST ALT Alkaline Phosphatase Total Protein Albumin Globulin Albumin/Globulin Ratio Triglycerides Cholesterol LDL Cholesterol Direct HDL Cholesterol Vitamin B12 Folate TSH 3rd Generation Attending/Attestation - Attestation I have personally seen and examined this patient.: Yes I have fully participated in the care of the patient.: Yes I have reviewed all pertinent clinical information: Yes Notes (Text): 03/18/18 18:17 Patient seen and examined Patient transferred to intensive care unit on neurology request as patient is more responsive Neurochecks FFP as per neurology Case discussed with family at length Repeat CAT scan of head
[2018-03-18] MEDS: Sodium Chloride 0.9% 1,000 ML IV SCH (16:42)
[2018-03-18] MEDS ORDERED: DiphenhydrAMINE 50 mg/ml Inj IVP STA (23:01)
[2018-03-18] MEDS ORDERED: hydrOXYzine HCl 25 mg/ml Inj IM STA (23:20)
[2018-03-18 23:40] LABS: INR 1.1; PROTHROMBIN TIME 12.3 SECONDS (9.7-12.2)
[2018-03-19] MEDS: Albuterol-Ipratrop 3 mg / 0.5 (3 ml) UD INH SCH ×5 (02:47→20:01)
[2018-03-19 06:17] LABS: BASO # 0.1 K/uL (0.0-0.2); BASO % 0.8 % (0.0-2.0); HEMOGLOBIN 11.9 g/dL (11.0-16.0); LYMPH # 0.6 K/uL (1.0-4.3); LYMPH % 3.7 % (20.0-40.0); MEAN CELL VOLUME 87.6 fL (81.0-99.0); MEAN CORPUSCULAR HEMOGLOBIN 28.9 pg (27.0-31.0); MEAN CORPUSCULAR HGB CONC 32.9 g/dL (33.0-37.0); MEAN PLATELET VOLUME 8.5 fL (7.2-11.7); MONO # 1.3 K/uL (0.0-0.8); MONO % 8.3 % (0.0-10.0); NEUT # 13.8 K/uL (1.8-7.0); NEUT % 87.2 % (50.0-75.0); PLATELET COUNT 256 K/uL (130-400); RBC 4.11 Mil/uL (3.80-5.20); RED CELL DISTRIBUTION WIDTH 13.9 % (11.5-14.5); WHITE BLOOD COUNT 15.8 K/uL (4.8-10.8)
[2018-03-19 06:36] LABS: ALB/GLOB RATIO 1.3 (1.0-2.1); ALBUMIN 3.7 g/dL (3.5-5.0); CALCIUM 8.6 mg/dl (8.6-10.4)
[2018-03-19] MEDS: Sodium Chloride 0.9% 1,000 ML IV SCH ×2 (06:40→13:15)
--- NOTE | 2018-03-19 06:52 | CON ---
DATE: 03/17/2018 HISTORY OF PRESENT ILLNESS: This is an unfortunate 72-year-old lady who does have multiple medical problems, who was in the ER, complaining of a variety of symptoms when suddenly she became completely unresponsive. She was emergently intubated and sent for a CAT scan which showed a massive diffuse subarachnoid hemorrhage. PAST MEDICAL HISTORY/MEDICATIONS/ALLERGIES: All reviewed in the EMR. PHYSICAL EXAMINATION: At this point, essentially she has a [place] Coma Score of T3. She is completely unresponsive. Pupils are 2 mm bilaterally and unreactive. She has a brisk corneal on the left, but completely absent on the right, Doll's eyes are absent. She decerebrates to gag. She has an interesting extremity pattern of no response in the right arm, decorticating in the left arm. Flexor response in the left leg and decorticating in the right leg. IMAGING: CT of the brain shows an absolutely massive combined subarachnoid intraventricular hemorrhage. The hemorrhage completely fills the pentagonal cistern, wraps around the brainstem, exogenates between the dorsal columns. It is in ventricle. There is mild developing hydrocephalus. IMPRESSION AND PLAN: Almost as soon as I discussed the situation with the family, they unequivocally stated that the patient was very clear during her lifetime she does not want any type of aggressive care in this situation. Considering her age, medical problems, the nature of the type of her candidature and her prognosis is quite dismal, I did offer her the possibility of aggressive intervention by transferring her to an endovascular center; however, they were quite adamant that the patient would not want to have this done. They are interested in essentially having her family members say good bye to her and actually likely extubating her relatively soon. I think we should certainly comply with their wishes, perhaps get her up to the ICU as soon as possible and of course make her comfortable. Matthew Fuentes MD
[2018-03-19 08:37] LABS: HYPOCHROMIC SLIGHT; LYMPHOCYTE 5 % (20-40); MONOCYTE 9 % (0-10); NEUTROPHIL 86 % (50-75); PLATELET ESTIMATE NORMAL (NORMAL); TOTAL CELLS COUNTED 100
--- NOTE | 2018-03-19 13:26 | CT ---
Date of service: 03/19/2018 PROCEDURE: CT HEAD WITHOUT CONTRAST. HISTORY: Stroke COMPARISON: Comparison made with CT scan of the brain 03/17/2017.. TECHNIQUE: Axial computed tomography images were obtained through the head/brain without intravenous contrast. Radiation dose: Total exam DLP = 1426.33 mGy-cm. This CT exam was performed using one or more of the following dose reduction techniques: Automated exposure control, adjustment of the mA and/or kV according to patient size, and/or use of iterative reconstruction technique. FINDINGS: HEMORRHAGE: Redemonstrated is a large amount of subarachnoid hemorrhage within the suprasellar cistern extending into the lateral fissures and sylvian fissures. Subarachnoid hemorrhage extends anteriorly and superiorly into the interhemispheric fissure as well. A large left somewhat elliptical shaped hematoma left inferior frontal pole again noted which has diminished slightly however surrounding edema as undergone further demarcation and appears more conspicuous. 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 Additionally, there are what appear to represent some curvilinear calcifications in the expected location of the left anterior communicating artery which could represent peripheral calcification about a partially thrombosed aneurysm.. Follow-up MRA or CTA of the brain is recommended. There is mild diffuse cerebral edema BRAIN: Suspect mild chronic periventricular white matter ischemic changes.. VENTRICLES: Again noted is moderate hydrocephalus with significant amount residual intraventricular hemorrhage due to decompression of hemorrhage into the inferior aspect left frontal horn.. CALVARIUM: The calvarium intact. PARANASAL SINUSES: Unremarkable as visualized. No significant inflammatory changes. MASTOID AIR CELLS: Unremarkable as visualized. No inflammatory changes. OTHER FINDINGS: None. Head IMPRESSION: Redemonstrated is a large amount of subarachnoid hemorrhage within the suprasellar cistern extending into the lateral fissures and sylvian fissures. Subarachnoid hemorrhage extends anteriorly and superiorly into the interhemispheric fissure as well. A large left somewhat elliptical shaped hematoma left inferior frontal pole again noted which has diminished slightly however surrounding edema as undergone further demarcation and appears more conspicuous. 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 Additionally, there are what appear to represent some curvilinear calcifications in the expected location of the left anterior communicating artery which could represent peripheral calcification about a partially thrombosed aneurysm.. There is mild diffuse cerebral edema Neurosurgical consultation and follow-up MRA or CTA of the brain is recommended.. Again noted is moderate hydrocephalus with significant amount of residual intraventricular Note that these findings discussed with Dr. Fang at 1:13 p.m. with written down and read back verification.
--- NOTE | 2018-03-19 16:49 | CP.PCM.PN ---
<Raúl Cormier - Last Filed: 03/19/18 17:02> Subjective - Date & Time of Evaluation Date of Evaluation: 03/19/18 Time of Evaluation: 16:44 - Subjective Subjective: Neurology Progress Note: Patient seen and assessed at bedside in ICU. According to family members, patient had intermittent periods of alertness and orientation as well as verbal responsiveness to questions with appropriate answers. Patient currently opens her to verbal stimulation but is verbally unresponsive and unable to follow commands. Objective - Vital Signs/Intake and Output Vital Signs (last 24 hours): Temp Pulse Resp BP Pulse Ox 99 F 103 H 21 155/69 H 93 L 03/19/18 12:00 03/19/18 15:01 03/19/18 15:01 03/19/18 15:01 03/19/18 15:01 Intake and Output: 03/19/18 03/19/18 06:59 18:59 Intake Total 800 550 Output Total 200 Balance 600 550 - Medications Medications: Current Medications Albuterol/Ipratropium (Duoneb 3 Mg/0.5 Mg (3 Ml) Ud) 3 ml INH RQ6 ANNALISE Last Admin: 03/19/18 07:20 Dose: 3 ml Sodium Chloride (Sodium Chloride 0.9%) 1,000 mls @ 50 mls/hr IV .Q20H ANNALISE Last Admin: 03/19/18 13:15 Dose: Not Given Levetiracetam 500 mg/ Sodium (Chloride) 105 mls @ 420 mls/hr IVPB Q12H ANNALISE Pantoprazole Sodium (Protonix Inj) 40 mg IVP Q24H ANNALISE Last Admin: 03/19/18 13:11 Dose: 40 mg - Labs Labs: 03/19/18 06:08 03/19/18 06:08 PT 12.3 SECONDS (9.7-12.2) H 03/18/18 23:14 INR 1.1 03/18/18 23:14 APTT 32 SECONDS (21-34) 03/18/18 23:14 - Constitutional Appears: Non-toxic, Chronically Ill - Eye Exam Eye Exam: PERRL (1-2mm bilaterally). absent: EOMI - ENT Exam ENT Exam: Mucous Membranes Dry - Respiratory Exam Respiratory Exam: Clear to Ausculation Bilateral, NORMAL BREATHING PATTERN - Cardiovascular Exam Cardiovascular Exam: Tachycardia - Neurological Exam Neurological Exam: absent: Alert, Awake, Oriented x3 Additional comments: Patient with eye opening to verbal stimulation; Patient able to speak and answer simple questions intermittently throughout exam; Unable to follow commands Assessment and Plan - Assessment and Plan (Free Text) Assessment: 72 year old female with a past medical history significant for emphysema and AAA who presented with headaches. She became unresponsive in ED and Code Stroke was called. CT Head showed subarachnoid hemorrhage, intraventricular hemorrhage and patient was intubated at that time. Patient has since been extubated and is now in ICU for monitoring. Plan: -Repeat CT Head largely unchanged but with slight diminishment of left frontal lobe hemorrhage -F/U Video EEG -ST and PT -Continue Neurochecks and ICU monitoring -Case discussed in detail with family members with all options presented; Family to discuss this amongst themselves and come to a decision regarding approach in management -Further recommendations as per Dr. Taylor Patient seen and case discussed with attending, Dr. Taylor. Raúl Cormier PGY2 <Neida Taylor - Last Filed: 03/19/18 17:22> Objective - Vital Signs/Intake and Output Vital Signs (last 24 hours): Temp Pulse Resp BP Pulse Ox 98.4 F 79 26 H 159/71 H 93 L 03/19/18 16:00 03/19/18 17:01 03/19/18 17:01 03/19/18 17:01 03/19/18 17:01 Intake and Output: 03/19/18 03/19/18 06:59 18:59 Intake Total 800 650 Output Total 200 Balance 600 650 - Medications Medications: Current Medications Albuterol/Ipratropium (Duoneb 3 Mg/0.5 Mg (3 Ml) Ud) 3 ml INH RQ6 ANNALISE Last Admin: 03/19/18 07:20 Dose: 3 ml Sodium Chloride (Sodium Chloride 0.9%) 1,000 mls @ 50 mls/hr IV .Q20H ANNALISE Last Admin: 03/19/18 13:15 Dose: Not Given Levetiracetam 500 mg/ Sodium (Chloride) 105 mls @ 420 mls/hr IVPB Q12H ANNALISE Pantoprazole Sodium (Protonix Inj) 40 mg IVP Q24H ANNALISE Last Admin: 03/19/18 13:11 Dose: 40 mg - Labs Labs: 03/19/18 06:08 03/19/18 06:08 PT 12.3 SECONDS (9.7-12.2) H 03/18/18 23:14 INR 1.1 03/18/18 23:14 APTT 32 SECONDS (21-34) 03/18/18 23:14 Assessment and Plan - Assessment and Plan (Free Text) Plan: MIss mckenna has improved but family would now like to make her hospice. Repeat CT head shows that hemorrhage is stable. I examined the patient independently and agree with the assessment and plan. Dr. Taylor Neurology
--- NOTE | 2018-03-19 17:32 | CP.CCUPN ---
<Zay Fang - Last Filed: 03/19/18 18:13> CCU Objective - Vital Signs / Intake & Output Vital Signs (Last 4 hours): Vital Signs Temp Pulse Resp BP Pulse Ox 03/19/18 17:01 79 26 H 159/71 H 93 L 03/19/18 17:00 105 H 27 H 93 L 03/19/18 16:01 92 H 21 155/71 H 92 L 03/19/18 16:00 98.4 F 106 H 22 93 L 03/19/18 15:01 103 H 21 155/69 H 93 L 03/19/18 15:00 86 21 93 L Intake and Output (Last 8hrs): Intake & Output 03/19/18 03/19/18 03/19/18 06:59 14:59 22:59 Intake Total 600 500 150 Output Total 200 Balance 400 500 150 Intake: Intake, IV Amount 400 500 150 Left Antecubital 400 500 150 Oral 0 0 Blood Product 200 Output: Urine 200 Urine, Voided 200 - Medications Active Medications: Active Medications Generic Name Dose Route Start Last Admin Trade Name Freq PRN Reason Stop Dose Admin Albuterol/Ipratropium 3 ml 03/18/18 14:00 03/19/18 07:20 Duoneb 3 Mg/0.5 Mg (3 Ml) Ud INH 3 ml RQ6 ANNALISE Administration Sodium Chloride 1,000 mls @ 50 mls/hr 03/17/18 20:00 03/19/18 13:15 Sodium Chloride 0.9% IV Not Given .Q20H ANNALISE Levetiracetam 500 mg/ Sodium 105 mls @ 420 mls/hr 03/19/18 22:00 Chloride IVPB Q12H ANNALISE Pantoprazole Sodium 40 mg 03/19/18 12:00 03/19/18 13:11 Protonix Inj IVP 40 mg Q24H ANNALISE Administration - Patient Studies Lab Studies: Lab Studies 03/19/18 03/19/18 03/19/18 Range/Units 16:26 11:05 07:09 WBC (4.8-10.8) K/uL RBC (3.80-5.20) Mil/uL Hgb (11.0-16.0) g/dL Hct (34.0-47.0) % MCV (81.0-99.0) fL MCH (27.0-31.0) pg MCHC (33.0-37.0) g/dL RDW (11.5-14.5) % Plt Count (130-400) K/uL MPV (7.2-11.7) fL Neut % (Auto) (50.0-75.0) % Lymph % (Auto) (20.0-40.0) % [facility] % (Auto) (0.0-10.0) % Eos % (Auto) (0.0-4.0) % Baso % (Auto) (0.0-2.0) % Neut # (Auto) (1.8-7.0) K/uL Lymph # (Auto) (1.0-4.3) K/uL [facility] # (Auto) (0.0-0.8) K/uL Eos # (Auto) (0.0-0.7) K/uL Baso # (Auto) (0.0-0.2) K/uL Neutrophils % (Manual) (50-75) % Lymphocytes % (Manual) (20-40) % Monocytes % (Manual) (0-10) % Platelet Estimate (NORMAL) Hypochromasia (manual) PT (9.7-12.2) SECONDS INR APTT (21-34) SECONDS Sodium (132-148) mmol/L Potassium (3.6-5.2) mmol/L Chloride (98-107) mmol/L Carbon Dioxide (22-30) mmol/L Anion Gap (10-20) BUN (7-17) mg/dL Creatinine (0.7-1.2) mg/dL Est GFR ( Amer) Est GFR (Non-Af Amer) POC Glucose (mg/dL) 112 H 165 H 142 H (65-110) mg/dL Random Glucose (65-105) mg/dL Calcium (8.6-10.4) mg/dl Phosphorus (2.5-4.5) mg/dL Magnesium (1.6-2.3) mg/dL Total Bilirubin (0.2-1.3) mg/dL AST (14-36) U/L ALT (9-52) U/L Alkaline Phosphatase (38-126) U/L Total Protein (6.3-8.3) g/dL Albumin (3.5-5.0) g/dL Globulin (2.2-3.9) gm/dL Albumin/Globulin Ratio (1.0-2.1) 03/19/18 03/19/18 03/18/18 Range/Units 06:08 06:08 23:14 WBC 15.8 H (4.8-10.8) K/uL RBC 4.11 (3.80-5.20) Mil/uL Hgb 11.9 (11.0-16.0) g/dL Hct 36.0 (34.0-47.0) % MCV 87.6 (81.0-99.0) fL MCH 28.9 (27.0-31.0) pg MCHC 32.9 L (33.0-37.0) g/dL RDW 13.9 (11.5-14.5) % Plt Count 256 (130-400) K/uL MPV 8.5 (7.2-11.7) fL Neut % (Auto) 87.2 H (50.0-75.0) % Lymph % (Auto) 3.7 L (20.0-40.0) % [facility] % (Auto) 8.3 (0.0-10.0) % Eos % (Auto) 0.0 (0.0-4.0) % Baso % (Auto) 0.8 (0.0-2.0) % Neut # (Auto) 13.8 H (1.8-7.0) K/uL Lymph # (Auto) 0.6 L (1.0-4.3) K/uL [facility] # (Auto) 1.3 H (0.0-0.8) K/uL Eos # (Auto) 0.0 (0.0-0.7) K/uL Baso # (Auto) 0.1 (0.0-0.2) K/uL Neutrophils % (Manual) 86 H (50-75) % Lymphocytes % (Manual) 5 L (20-40) % Monocytes % (Manual) 9 (0-10) % Platelet Estimate Normal (NORMAL) Hypochromasia (manual) Slight PT 12.3 H (9.7-12.2) SECONDS INR 1.1 APTT 32 (21-34) SECONDS Sodium 141 (132-148) mmol/L Potassium 3.9 (3.6-5.2) mmol/L Chloride 111 H (98-107) mmol/L Carbon Dioxide 22 (22-30) mmol/L Anion Gap 13 (10-20) BUN 23 H (7-17) mg/dL Creatinine 1.2 (0.7-1.2) mg/dL Est GFR ( Amer) 53 Est GFR (Non-Af Amer) 44 POC Glucose (mg/dL) (65-110) mg/dL Random Glucose 125 H (65-105) mg/dL Calcium 8.6 (8.6-10.4) mg/dl Phosphorus 3.3 (2.5-4.5) mg/dL Magnesium 2.0 (1.6-2.3) mg/dL Total Bilirubin 0.7 (0.2-1.3) mg/dL AST 37 H D (14-36) U/L ALT 17 (9-52) U/L Alkaline Phosphatase 71 (38-126) U/L Total Protein 6.6 (6.3-8.3) g/dL Albumin 3.7 (3.5-5.0) g/dL Globulin 2.9 (2.2-3.9) gm/dL Albumin/Globulin Ratio 1.3 (1.0-2.1) 03/18/18 Range/Units 20:54 WBC (4.8-10.8) K/uL RBC (3.80-5.20) Mil/uL Hgb (11.0-16.0) g/dL Hct (34.0-47.0) % MCV (81.0-99.0) fL MCH (27.0-31.0) pg MCHC (33.0-37.0) g/dL RDW (11.5-14.5) % Plt Count (130-400) K/uL MPV (7.2-11.7) fL Neut % (Auto) (50.0-75.0) % Lymph % (Auto) (20.0-40.0) % [facility] % (Auto) (0.0-10.0) % Eos % (Auto) (0.0-4.0) % Baso % (Auto) (0.0-2.0) % Neut # (Auto) (1.8-7.0) K/uL Lymph # (Auto) (1.0-4.3) K/uL [facility] # (Auto) (0.0-0.8) K/uL Eos # (Auto) (0.0-0.7) K/uL Baso # (Auto) (0.0-0.2) K/uL Neutrophils % (Manual) (50-75) % Lymphocytes % (Manual) (20-40) % Monocytes % (Manual) (0-10) % Platelet Estimate (NORMAL) Hypochromasia (manual) PT (9.7-12.2) SECONDS INR APTT (21-34) SECONDS Sodium (132-148) mmol/L Potassium (3.6-5.2) mmol/L Chloride (98-107) mmol/L Carbon Dioxide (22-30) mmol/L Anion Gap (10-20) BUN (7-17) mg/dL Creatinine (0.7-1.2) mg/dL Est GFR ( Amer) Est GFR (Non-Af Amer) POC Glucose (mg/dL) 148 H (65-110) mg/dL Random Glucose (65-105) mg/dL Calcium (8.6-10.4) mg/dl Phosphorus (2.5-4.5) mg/dL Magnesium (1.6-2.3) mg/dL Total Bilirubin (0.2-1.3) mg/dL AST (14-36) U/L ALT (9-52) U/L Alkaline Phosphatase (38-126) U/L Total Protein (6.3-8.3) g/dL Albumin (3.5-5.0) g/dL Globulin (2.2-3.9) gm/dL Albumin/Globulin Ratio (1.0-2.1) Laboratory Results - last 24 hr 03/18/18 03/18/18 03/19/18 20:54 23:14 06:08 WBC 15.8 H RBC 4.11 Hgb 11.9 Hct 36.0 MCV 87.6 MCH 28.9 MCHC 32.9 L RDW 13.9 Plt Count 256 MPV 8.5 Neut % (Auto) 87.2 H Lymph % (Auto) 3.[address] [facility] % (Auto) 8.3 Eos % (Auto) 0.0 Baso % (Auto) 0.8 Neut # (Auto) 13.8 H Lymph # (Auto) 0.[address] # (Auto) 1.3 H Eos # (Auto) 0.0 Baso # (Auto) 0.1 Neutrophils % (Manual) 86 H Lymphocytes % (Manual) 5 L Monocytes % (Manual) 9 Platelet Estimate Normal Hypochromasia (manual) Slight PT 12.3 H INR 1.1 APTT 32 Sodium Potassium Chloride Carbon Dioxide Anion Gap BUN Creatinine Est GFR ( Amer) Est GFR (Non-Af Amer) POC Glucose (mg/dL) 148 H Random Glucose Calcium Phosphorus Magnesium Total Bilirubin AST ALT Alkaline Phosphatase Total Protein Albumin Globulin Albumin/Globulin Ratio 03/19/18 03/19/18 03/19/18 06:08 07:09 11:05 WBC RBC Hgb Hct MCV MCH MCHC RDW Plt Count MPV Neut % (Auto) Lymph % (Auto) [facility] % (Auto) Eos % (Auto) Baso % (Auto) Neut # (Auto) Lymph # (Auto) [facility] # (Auto) Eos # (Auto) Baso # (Auto) Neutrophils % (Manual) Lymphocytes % (Manual) Monocytes % (Manual) Platelet Estimate Hypochromasia (manual) PT INR APTT Sodium 141 Potassium 3.9 Chloride 111 H Carbon Dioxide 22 Anion Gap 13 BUN 23 H Creatinine 1.2 Est GFR ( Amer) 53 Est GFR (Non-Af Amer) 44 POC Glucose (mg/dL) 142 H 165 H Random Glucose 125 H Calcium 8.6 Phosphorus 3.3 Magnesium 2.0 Total Bilirubin 0.7 AST 37 H D ALT 17 Alkaline Phosphatase 71 Total Protein 6.6 Albumin 3.7 Globulin 2.9 Albumin/Globulin Ratio 1.3 03/19/18 16:26 WBC RBC Hgb Hct MCV MCH MCHC RDW Plt Count MPV Neut % (Auto) Lymph % (Auto) [facility] % (Auto) Eos % (Auto) Baso % (Auto) Neut # (Auto) Lymph # (Auto) [facility] # (Auto) Eos # (Auto) Baso # (Auto) Neutrophils % (Manual) Lymphocytes % (Manual) Monocytes % (Manual) Platelet Estimate Hypochromasia (manual) PT INR APTT Sodium Potassium Chloride Carbon Dioxide Anion Gap BUN Creatinine Est GFR ( Amer) Est GFR (Non-Af Amer) POC Glucose (mg/dL) 112 H Random Glucose Calcium Phosphorus Magnesium Total Bilirubin AST ALT Alkaline Phosphatase Total Protein Albumin Globulin Albumin/Globulin Ratio Radiology Impressions: Radiology Impressions Head CT 03/19/18 11:48 IMPRESSION: Redemonstrated is a large amount of subarachnoid hemorrhage within the suprasellar cistern extending into the lateral fissures and sylvian fissures. Subarachnoid hemorrhage extends anteriorly and superiorly into the interhemispheric fissure as well. A large left somewhat elliptical shaped hematoma left inferior frontal pole again noted which has diminished slightly however surrounding edema as undergone further demarcation and appears more conspicuous. 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 Additionally, there are what appear to represent some curvilinear calcifications in the expected location of the left anterior communicating artery which could represent peripheral calcification about a partially thrombosed aneurysm.. There is mild diffuse cerebral edema Neurosurgical consultation and follow-up MRA or CTA of the brain is recommended.. Again noted is moderate hydrocephalus with significant amount of residual intraventricular Note that these findings discussed with Dr. Fang at 1:13 p.m. with written down and read back verification. Attending/Attestation - Attestation I have personally seen and examined this patient.: Yes I have fully participated in the care of the patient.: Yes I have reviewed all pertinent clinical information: Yes Notes (Text): 03/19/18 18:13 I have seen and examined the patient. Medical records, lab studies, and imaging were reviewed by me and a management plan was formulated on multidisciplinary rounds with resident Dr. Suresh. I agree with their documented assessment and plan. Discussed with family about aggressive intervention with coiling, EVD and would require transfer. The family decided that they did not want aggressive care as this would not be in line with the patient's wishes. We have made her DNR/DNI and they would like to make her hospice. Critical Care Time 35 minutes. Multi-disciplinary rounds were performed with house staff, nursing, speech therapy, respiratory therapy, pharmacy and nutrition with integrated input from the primary team/attending and other consulting services. The documented time is cumulative and includes review of patient data/exams/labs/chart review and examination of the patient on rounds and throughout the day; time is exclusive of any procedures or teaching time. <Suresh,Fazal G. - Last Filed: 03/19/18 22:19> CCU Subjective - Physician Review Subjective (Free Text): PGY-[address] progress note for Dr Ekta Fang Patient is seen and examined at bedside. Patient remains clinically same, no acute changes overnight reported as per family. Patient continues to move, and is able to say a few words, does not open her eyes. does not follow command. ROS unttainable due to patient's condition. Critical Care Time Spent (in minutes): 35 CCU Objective - Vital Signs / Intake & Output Vital Signs (Last 4 hours): Vital Signs Temp Pulse Resp BP Pulse Ox 03/19/18 17:01 79 26 H 159/71 H 93 L 03/19/18 17:00 105 H 27 H 93 L 03/19/18 16:01 92 H 21 155/71 H 92 L 03/19/18 16:00 98.4 F 106 H 22 93 L 03/19/18 15:01 103 H 21 155/69 H 93 L 03/19/18 15:00 86 21 93 L 03/19/18 14:01 108 H 26 H 135/74 91 L 03/19/18 14:00 106 H 22 93 L Intake and Output (Last 8hrs): Intake & Output 03/19/18 03/19/18 03/19/18 06:59 14:59 22:59 Intake Total 600 500 150 Output Total 200 Balance 400 500 150 Intake: Intake, IV Amount 400 500 150 Left Antecubital 400 500 150 Oral 0 0 Blood Product 200 Output: Urine 200 Urine, Voided 200 - Physical Exam Physical Exam Limitations: Positive for: Clinical Condition Head: Positive for: Atraumatic Pupils: Positive for: PERRL Extroacular Muscles: Negative for: EOMI Mouth: Positive for: Dry Respiratory/Chest: Positive for: Clear to Auscultation Cardiovascular: Positive for: Normal S1, S2, Tachycardic Abdomen: Positive for: Other (soft ) Psychiatric: Negative for: Alert, Oriented x 3 - Medications Active Medications: Active Medications Generic Name Dose Route Start Last Admin Trade Name Freq PRN Reason Stop Dose Admin Albuterol/Ipratropium 3 ml 03/18/18 14:00 03/19/18 07:20 Duoneb 3 Mg/0.5 Mg (3 Ml) Ud INH 3 ml RQ6 ANNALISE Administration Sodium Chloride 1,000 mls @ 50 mls/hr 03/17/18 20:00 03/19/18 13:15 Sodium Chloride 0.9% IV Not Given .Q20H ANNALISE Levetiracetam 500 mg/ Sodium 105 mls @ 420 mls/hr 03/19/18 22:00 Chloride IVPB Q12H ANNALISE Pantoprazole Sodium 40 mg 03/19/18 12:00 03/19/18 13:11 Protonix Inj IVP 40 mg Q24H ANNALISE Administration - Patient Studies Lab Studies: Lab Studies 03/19/18 03/19/18 03/19/18 Range/Units 16:26 11:05 07:09 WBC (4.8-10.8) K/uL RBC (3.80-5.20) Mil/uL Hgb (11.0-16.0) g/dL Hct (34.0-47.0) % MCV (81.0-99.0) fL MCH (27.0-31.0) pg MCHC (33.0-37.0) g/dL RDW (11.5-14.5) % Plt Count (130-400) K/uL MPV (7.2-11.7) fL Neut % (Auto) (50.0-75.0) % Lymph % (Auto) (20.0-40.0) % [facility] % (Auto) (0.0-10.0) % Eos % (Auto) (0.0-4.0) % Baso % (Auto) (0.0-2.0) % Neut # (Auto) (1.8-7.0) K/uL Lymph # (Auto) (1.0-4.3) K/uL [facility] # (Auto) (0.0-0.8) K/uL Eos # (Auto) (0.0-0.7) K/uL Baso # (Auto) (0.0-0.2) K/uL Neutrophils % (Manual) (50-75) % Lymphocytes % (Manual) (20-40) % Monocytes % (Manual) (0-10) % Platelet Estimate (NORMAL) Hypochromasia (manual) PT (9.7-12.2) SECONDS INR APTT (21-34) SECONDS Sodium (132-148) mmol/L Potassium (3.6-5.2) mmol/L Chloride (98-107) mmol/L Carbon Dioxide (22-30) mmol/L Anion Gap (10-20) BUN (7-17) mg/dL Creatinine (0.7-1.2) mg/dL Est GFR ( Amer) Est GFR (Non-Af Amer) POC Glucose (mg/dL) 112 H 165 H 142 H (65-110) mg/dL Random Glucose (65-105) mg/dL Calcium (8.6-10.4) mg/dl Phosphorus (2.5-4.5) mg/dL Magnesium (1.6-2.3) mg/dL Total Bilirubin (0.2-1.3) mg/dL AST (14-36) U/L ALT (9-52) U/L Alkaline Phosphatase (38-126) U/L Total Protein (6.3-8.3) g/dL Albumin (3.5-5.0) g/dL Globulin (2.2-3.9) gm/dL Albumin/Globulin Ratio (1.0-2.1) 03/19/18 03/19/18 03/18/18 Range/Units 06:08 06:08 23:14 WBC 15.8 H (4.8-10.8) K/uL RBC 4.11 (3.80-5.20) Mil/uL Hgb 11.9 (11.0-16.0) g/dL Hct 36.0 (34.0-47.0) % MCV 87.6 (81.0-99.0) fL MCH 28.9 (27.0-31.0) pg MCHC 32.9 L (33.0-37.0) g/dL RDW 13.9 (11.5-14.5) % Plt Count 256 (130-400) K/uL MPV 8.5 (7.2-11.7) fL Neut % (Auto) 87.2 H (50.0-75.0) % Lymph % (Auto) 3.7 L (20.0-40.0) % [facility] % (Auto) 8.3 (0.0-10.0) % Eos % (Auto) 0.0 (0.0-4.0) % Baso % (Auto) 0.8 (0.0-2.0) % Neut # (Auto) 13.8 H (1.8-7.0) K/uL Lymph # (Auto) 0.6 L (1.0-4.3) K/uL [facility] # (Auto) 1.3 H (0.0-0.8) K/uL Eos # (Auto) 0.0 (0.0-0.7) K/uL Baso # (Auto) 0.1 (0.0-0.2) K/uL Neutrophils % (Manual) 86 H (50-75) % Lymphocytes % (Manual) 5 L (20-40) % Monocytes % (Manual) 9 (0-10) % Platelet Estimate Normal (NORMAL) Hypochromasia (manual) Slight PT 12.3 H (9.7-12.2) SECONDS INR 1.1 APTT 32 (21-34) SECONDS Sodium 141 (132-148) mmol/L Potassium 3.9 (3.6-5.2) mmol/L Chloride 111 H (98-107) mmol/L Carbon Dioxide 22 (22-30) mmol/L Anion Gap 13 (10-20) BUN 23 H (7-17) mg/dL Creatinine 1.2 (0.7-1.2) mg/dL Est GFR ( Amer) 53 Est GFR (Non-Af Amer) 44 POC Glucose (mg/dL) (65-110) mg/dL Random Glucose 125 H (65-105) mg/dL Calcium 8.6 (8.6-10.4) mg/dl Phosphorus 3.3 (2.5-4.5) mg/dL Magnesium 2.0 (1.6-2.3) mg/dL Total Bilirubin 0.7 (0.2-1.3) mg/dL AST 37 H D (14-36) U/L ALT 17 (9-52) U/L Alkaline Phosphatase 71 (38-126) U/L Total Protein 6.6 (6.3-8.3) g/dL Albumin 3.7 (3.5-5.0) g/dL Globulin 2.9 (2.2-3.9) gm/dL Albumin/Globulin Ratio 1.3 (1.0-2.1) 01/16/19 Range/Units 20:54 WBC (4.8-10.8) K/uL RBC (3.80-5.20) Mil/uL Hgb (11.0-16.0) g/dL Hct (34.0-47.0) % MCV (81.0-99.0) fL MCH (27.0-31.0) pg MCHC (33.0-37.0) g/dL RDW (11.5-14.5) % Plt Count (130-400) K/uL MPV (7.2-11.7) fL Neut % (Auto) (50.0-75.0) % Lymph % (Auto) (20.0-40.0) % [facility] % (Auto) (0.0-10.0) % Eos % (Auto) (0.0-4.0) % Baso % (Auto) (0.0-2.0) % Neut # (Auto) (1.8-7.0) K/uL Lymph # (Auto) (1.0-4.3) K/uL [facility] # (Auto) (0.0-0.8) K/uL Eos # (Auto) (0.0-0.7) K/uL Baso # (Auto) (0.0-0.2) K/uL Neutrophils % (Manual) (50-75) % Lymphocytes % (Manual) (20-40) % Monocytes % (Manual) (0-10) % Platelet Estimate (NORMAL) Hypochromasia (manual) PT (9.7-12.2) SECONDS INR APTT (21-34) SECONDS Sodium (132-148) mmol/L Potassium (3.6-5.2) mmol/L Chloride (98-107) mmol/L Carbon Dioxide (22-30) mmol/L Anion Gap (10-20) BUN (7-17) mg/dL Creatinine (0.7-1.2) mg/dL Est GFR ( Amer) Est GFR (Non-Af Amer) POC Glucose (mg/dL) 148 H (65-110) mg/dL Random Glucose (65-105) mg/dL Calcium (8.6-10.4) mg/dl Phosphorus (2.5-4.5) mg/dL Magnesium (1.6-2.3) mg/dL Total Bilirubin (0.2-1.3) mg/dL AST (14-36) U/L ALT (9-52) U/L Alkaline Phosphatase (38-126) U/L Total Protein (6.3-8.3) g/dL Albumin (3.5-5.0) g/dL Globulin (2.2-3.9) gm/dL Albumin/Globulin Ratio (1.0-2.1) Laboratory Results - last 24 hr 03/18/18 03/18/18 03/19/18 20:54 23:14 06:08 WBC 15.8 H RBC 4.11 Hgb 11.9 Hct 36.0 MCV 87.6 MCH 28.9 MCHC 32.9 L RDW 13.9 Plt Count 256 MPV 8.5 Neut % (Auto) 87.2 H Lymph % (Auto) 3.[address] [facility] % (Auto) 8.3 Eos % (Auto) 0.0 Baso % (Auto) 0.8 Neut # (Auto) 13.8 H Lymph # (Auto) 0.[address] # (Auto) 1.3 H Eos # (Auto) 0.0 Baso # (Auto) 0.1 Neutrophils % (Manual) 86 H Lymphocytes % (Manual) 5 L Monocytes % (Manual) 9 Platelet Estimate Normal Hypochromasia (manual) Slight PT 12.3 H INR 1.1 APTT 32 Sodium Potassium Chloride Carbon Dioxide Anion Gap BUN Creatinine Est GFR ( Amer) Est GFR (Non-Af Amer) POC Glucose (mg/dL) 148 H Random Glucose Calcium Phosphorus Magnesium Total Bilirubin AST ALT Alkaline Phosphatase Total Protein Albumin Globulin Albumin/Globulin Ratio 03/19/18 03/19/18 03/19/18 06:08 07:09 11:05 WBC RBC Hgb Hct MCV MCH MCHC RDW Plt Count MPV Neut % (Auto) Lymph % (Auto) [facility] % (Auto) Eos % (Auto) Baso % (Auto) Neut # (Auto) Lymph # (Auto) [facility] # (Auto) Eos # (Auto) Baso # (Auto) Neutrophils % (Manual) Lymphocytes % (Manual) Monocytes % (Manual) Platelet Estimate Hypochromasia (manual) PT INR APTT Sodium 141 Potassium 3.9 Chloride 111 H Carbon Dioxide 22 Anion Gap 13 BUN 23 H Creatinine 1.2 Est GFR ( Amer) 53 Est GFR (Non-Af Amer) 44 POC Glucose (mg/dL) 142 H 165 H Random Glucose 125 H Calcium 8.6 Phosphorus 3.3 Magnesium 2.0 Total Bilirubin 0.7 AST 37 H D ALT 17 Alkaline Phosphatase 71 Total Protein 6.6 Albumin 3.7 Globulin 2.9 Albumin/Globulin Ratio 1.3 03/19/18 16:26 WBC RBC Hgb Hct MCV MCH MCHC RDW Plt Count MPV Neut % (Auto) Lymph % (Auto) [facility] % (Auto) Eos % (Auto) Baso % (Auto) Neut # (Auto) Lymph # (Auto) [facility] # (Auto) Eos # (Auto) Baso # (Auto) Neutrophils % (Manual) Lymphocytes % (Manual) Monocytes % (Manual) Platelet Estimate Hypochromasia (manual) PT INR APTT Sodium Potassium Chloride Carbon Dioxide Anion Gap BUN Creatinine Est GFR ( Amer) Est GFR (Non-Af Amer) POC Glucose (mg/dL) 112 H Random Glucose Calcium Phosphorus Magnesium Total Bilirubin AST ALT Alkaline Phosphatase Total Protein Albumin Globulin Albumin/Globulin Ratio Radiology Impressions: Radiology Impressions Head CT 03/19/18 11:48 IMPRESSION: Redemonstrated is a large amount of subarachnoid hemorrhage within the suprasellar cistern extending into the lateral fissures and sylvian fissures. Subarachnoid hemorrhage extends anteriorly and superiorly into the interhemispheric fissure as well. A large left somewhat elliptical shaped hematoma left inferior frontal pole again noted which has diminished slightly however surrounding edema as undergone further demarcation and appears more conspicuous. 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 Additionally, there are what appear to represent some curvilinear calcifications in the expected location of the left anterior communicating artery which could represent peripheral calcification about a partially thrombosed aneurysm.. There is mild diffuse cerebral edema Neurosurgical consultation and follow-up MRA or CTA of the brain is recommended.. Again noted is moderate hydrocephalus with significant amount of residual intraventricular Note that these findings discussed with Dr. Fang at 1:13 p.m. with written down and read back verification. Fingerstick Blood Sugar Results: 112 Review of Systems - Review of Systems Systems not reviewed;Unavailable: Acuity of Condition Assessment/Plan - Assessment and Plan (Free Text) Plan: 72 year old female pmhx of emphysema, and aneurysm came to ED for headaches, become unresponsive in ED. head CT shows subarachnoid hemorrhage, intraverntricular hemorrhage, code stroke called, Patient intubated at time of encounter. no surgical intervention at this time as per neurosx Neuro: - not awake, not oriented, responds to verbal stimulus, does not follow command - Neurochecks Q1 H - Keppra 500 Q12H - repeat head CT Scan - redemonstrated subarachnoid and frontal lobe hematoma, with surrounding edema - see official report for more details - patient's family has opted for hospice after discussion of options for surgical intervention with coiling, EVD, patient does not want aggresive care for patient. - Neuro Dr Taylor Cardio - On tele - monitor bp Respiratory - monitor O2 sat - NC PPX - patient is DNR/DNI as per family request - Hospice eval, palliative care consult - NS @ 50 cc - protonix - PT Dispo: patient's family has opted for hospice after discussion of options for surgical intervention with coiling, EVD, patient's family does not want aggresive care for patient. Plan discussed with Dr Ekta Suresh - Date & Time Date: 03/19/18 Time: 14:00
--- NOTE | 2018-03-19 18:04 | PN ---
DATE: 03/18/2018 SUBJECTIVE: The patient is a 72-year-old female. The patient was seen and examined at the bedside on 03/18/2018. One daughter and son were standing on the bedside also. The patient had massive IC with subarachnoid hemorrhage and intraventricular component, was not a candidate for surgery as per neurosurgeon and now as per the family, the patient is talking, according to middle son, Zack. He said his mother recognized and called him Zack, but when I went to see the patient that evening, according to family the patient was sleeping, but still on stimulus, was moving extremities. No fever, no chills. REVIEW OF SYSTEMS: The patient is not able to give review of systems. PHYSICAL EXAMINATION: VITAL SIGNS: Temperature 98.2, pulse 78, respiratory rate 20, blood pressure 120/57, and pulse oximetry 94%. HEENT: Head is normocephalic and atraumatic. Eyes are closed, corneal reflex is positive, Doll's reflex is positive. Gag reflex is positive. Mucous membranes are moist. NECK: Supple, no carotid bruits or thyromegaly. CHEST: Bilaterally symmetrical. HEART: S1 and S2 positive. LUNGS: Poor air entry. ABDOMEN: Soft, bowel sounds are present. No organomegaly. EXTREMITIES: No edema, no cyanosis. NEUROLOGIC: The patient is sleepy as per family, but responding to stimuli. MEDICATIONS: Dextrose with levetiracetam NSS. LABORATORY DATA: White blood cell is 12.8, hemoglobin 11.7, hematocrit 35.6, platelets 328. Sodium 137, potassium 3.7, BUN 12, creatinine 0.8, and glucose 128. ASSESSMENT AND PLAN: Ms. Simran Roberts is a 72-year-old lady with leukocytosis, hyperglycemia. Originally CT head was done on day of admission which showed massive intracerebral, intraventricular hemorrhage with subarachnoid hemorrhage with mild line shift, looks like aneurysmal bleed and neurologically, she is improving. The patient was actually on the medical floor, transferred to ICU. We are maintaining her blood pressure with normal limits. Considering nifedipine as per neurologist. The patient is DNR, DNI. FFP is 5 units given. Repeat CAT scan was pending. Video EGD after CT scan as per Neurology, recommended neuro check every 1 hour. The patient was seen by Dr. Taylor. Discussion done with the patient's son length of time, Zack. All questions answered. Other daughter was on the bedside also. The patient has history of emphysema, has subarachnoid hemorrhage, intraventricular hemorrhage, code stroke was called. The patient was intubated at the time of encounter. According to Neurosurgery, no neurosurgeries at that moment. The patient is getting monitor. Terminally was extubated as per the patient's family's request in emergency room. Hospital evaluation was requested. Nutritional consult requested. Getting a slowly more responsive neurologically. Starting total parenteral nutrition. Continue monitoring the patient. Appreciated neurology and pulmonary consult. We will follow. Ngoc Hawley MD
[2018-03-19] MEDS: levETIRAcetam 500 MG in Sodium Chloride 0.9% 100 ML IVPB SCH (21:42)
[2018-03-20] MEDS: Albuterol-Ipratrop 3 mg / 0.5 (3 ml) UD INH SCH ×3 (01:13→07:19)
[2018-03-20] MEDS: Sodium Chloride 0.9% 1,000 ML IV SCH ×2 (01:38→08:00)
[2018-03-20] MEDS: levETIRAcetam 500 MG in Sodium Chloride 0.9% 100 ML IVPB SCH (09:52)
--- NOTE | 2018-03-20 13:44 | CP.PCM.PN ---
Subjective - Date & Time of Evaluation Date of Evaluation: 03/20/18 Time of Evaluation: 13:42 - Subjective Subjective: Neurology Follow-Up Note: Mrs. Roberts was evaluated today in ICU. She was downgraded this morning to med-surg. Family present at bedside. Pt is pending a hospice evaluation today. ROS is limited as pt does not answer all questions. Objective - Vital Signs/Intake and Output Vital Signs (last 24 hours): Temp Pulse Resp BP Pulse Ox 98.3 F 105 H 22 152/75 H 93 L 03/20/18 04:00 03/20/18 07:02 03/20/18 07:02 03/20/18 07:02 03/20/18 07:02 Intake and Output: 03/20/18 03/20/18 06:59 18:59 Intake Total 650 Balance 650 - Medications Medications: Current Medications Albuterol/Ipratropium (Duoneb 3 Mg/0.5 Mg (3 Ml) Ud) 3 ml INH RQ6 ANNALISE Last Admin: 03/20/18 07:19 Dose: Not Given Sodium Chloride (Sodium Chloride 0.9%) 1,000 mls @ 50 mls/hr IV .Q20H ANNALISE Last Admin: 03/20/18 01:38 Dose: 50 mls/hr Levetiracetam 500 mg/ Sodium (Chloride) 105 mls @ 420 mls/hr IVPB Q12H ANNALISE Last Admin: 03/20/18 09:52 Dose: 420 mls/hr Pantoprazole Sodium (Protonix Inj) 40 mg IVP Q24H ANNALISE Last Admin: 03/19/18 13:11 Dose: 40 mg - Labs Labs: 03/19/18 06:08 03/19/18 06:08 PT 12.3 SECONDS (9.7-12.2) H 03/18/18 23:14 INR 1.1 03/18/18 23:14 APTT 32 SECONDS (21-34) 03/18/18 23:14 - Constitutional Appears: No Acute Distress (appears comfortable) - Head Exam Head Exam: ATRAUMATIC, NORMAL INSPECTION, NORMOCEPHALIC - Eye Exam Eye Exam: EOMI, Normal appearance, PERRL Pupil Exam: NORMAL ACCOMODATION, PERRL - ENT Exam ENT Exam: Mucous Membranes Moist - Neck Exam Neck Exam: Normal Inspection - Respiratory Exam Respiratory Exam: NORMAL BREATHING PATTERN - Cardiovascular Exam Cardiovascular Exam: Tachycardia (hr 105) - GI/Abdominal Exam GI & Abdominal Exam: Soft - Extremities Exam Extremities Exam: Full ROM (moves extremities independently; generalized weakness). absent: Calf Tenderness, Pedal Edema - Neurological Exam Neurological Exam: Altered, Reflexes Normal Additional comments: Pt appears comfortable, not agitated. Asleep but easily arousable to verbal stimuli and light touch. Moves all extremities independently; opens eyes. Unable to fully assess strength and sensation 2/2 pt not following all commands Reflexes normal No tremors; toes down-going - Skin Skin Exam: Normal Color Assessment and Plan (1) Subarachnoid hemorrhage Assessment & Plan: Imaging reviewed: -CT Head (03/19/18): Redemonstrated is a large amount of subarachnoid hemorrhage within the suprasellar cistern extending into the lateral fissures and sylvian fissures. Subarachnoid hemorrhage extends anteriorly and superiorly into the interhemispheric fissure as well. A large left somewhat elliptical shaped h ematoma left inferior frontal pole again noted which has diminished slightly however surrounding edema as undergone further demarcation and appears more conspicuous. The appearance and location of the hematoma in addition to extensive subarachnoid hemorrhage likely represents a ruptured anterior co mmunicating artery with decompression of hemorrhage into the inferior frontal pole as well as the inferior aspect left frontal horn.. Additionally, there are what appear to represent some curvilinear calcifications in the expected location of the left anterior communicating artery which could represent peripheral calcification about a partially thrombosed aneurysm. There is mild diffuse cerebral edema. Neurosurgical consultation and follow-up MRA or CTA of the brain is recommended. Again noted is moderate hydrocephalus with significant amount of residual intraventricular. -CT Head (03/17/18): Extensive subarachnoid hemorrhage is identified particularly involving the bilateral frontal and temporal lobes but also into the basilar cisterns as discussed above. Intraventricular hemorrhage mildly distends the left lateral ventricle body and the 4th ventricle but also involves the right lateral ventricle and 3rd ventricles. Hydrocephalus appears to be developing due to intraventricular hemorrhage. There is a mild rightward midline shift of 4.2 mm. There is no deformity of the brainstem or edema at this time. Left frontal intraparenchymal hemorrhage exhibits limited local edema. Continued clinical and cross-sectional imaging follow-up are advise. Mrs. Roberts presented to the hospital with headaches. She became unresponsive in ED and Code Stroke was called. CT Head showed subarachnoid hemorrhage, intraventricular hemorrhage and patient was intubated at that time. Patient has since been extubated and was in ICU for monitoring. Repeat CT Head from yesterday showed worsen in the hemorrhage. Family was given the option to transfer the pt to [place] for surgical intervention, however, they refused and requested for hospice evaluation. Pt was downgraded to med-surg upon hospice request. -Continue to monitor the pt; continue current management per primary team. -If the family decides to not go through with hospice, we will continue to see the pt and possibly recommend a repeat CT Head without contrast in 48 hours to re-eval the SAH. -If family agrees on hospice, please reconsult neuro prn. Case discussed with Dr. Candelario. Status: Acute
--- NOTE | 2018-03-20 14:56 | CP.PCM.PN ---
Subjective - Date & Time of Evaluation Date of Evaluation: 03/20/18 Time of Evaluation: 14:56 - Subjective Subjective: PATIENT SEEN AND EXAMINED AT THE BEDSIDE PLACE ON HOSPICE AND WILL BE FOLLOW UP BY THE HOSPITALIST TEAM Objective - Vital Signs/Intake and Output Vital Signs (last 24 hours): Temp Pulse Resp BP Pulse Ox 97.6 F 92 H 19 156/75 H 95 03/20/18 08:00 03/20/18 14:01 03/20/18 14:01 03/20/18 14:01 03/20/18 14:01 Intake and Output: 03/20/18 03/20/18 06:59 18:59 Intake Total 650 Balance 650 - Medications Medications: Current Medications Albuterol/Ipratropium (Duoneb 3 Mg/0.5 Mg (3 Ml) Ud) 3 ml INH RQ6 [facility] Last Admin: 03/20/18 07:19 Dose: Not Given Sodium Chloride (Sodium Chloride 0.9%) 1,000 mls @ 50 mls/hr IV .Q20H ANNALISE Last Admin: 03/20/18 01:38 Dose: 50 mls/hr Levetiracetam 500 mg/ Sodium (Chloride) 105 mls @ 420 mls/hr IVPB Q12H ANNALISE Last Admin: 03/20/18 09:52 Dose: 420 mls/hr Pantoprazole Sodium (Protonix Inj) 40 mg IVP Q24H [facility] Last Admin: 03/19/18 13:11 Dose: 40 mg - Labs Labs: 03/19/18 06:08 03/19/18 06:08 PT 12.3 SECONDS (9.7-12.2) H 03/18/18 23:14 INR 1.1 03/18/18 23:14 APTT 32 SECONDS (21-34) 03/18/18 23:14
[2018-03-20 15:02] VITALS: TEMP 97.5
[2018-03-20 15:03] VITALS: BP 78/47; PULSE 108; RESP 20
[2018-03-20] MEDS ORDERED: Morphine Sulfate 250 MG in Dextrose 5% In Water 240 ML IV PRN ×2 (15:24→15:58)
[2018-03-20] MEDS ORDERED: Albuterol-Ipratrop 3 mg / 0.5 (3 ml) UD INH PRN (15:29)
[2018-03-20] MEDS ORDERED: Albuterol-Ipratrop 3 mg / 0.5 (3 ml) UD INH SCH ×2 (18:00)
[2018-03-22 02:55] VITALS: O2SAT 90
== END 2018-03-20 15:35 | disposition hospice, inpatient (51) | DRG 64 ==
LOC: C.ER 08:27 → C.9E 11:15 → C.3T 14:47 → C.9I 03-18 11:45 → UNDODISIN 03-20 15:46
PROVIDERS: ADMIT Internal Medicine; ATTEND Internal Medicine
PROC: 0BH17EZ Insertion of Endotracheal Airway into Trachea, Via Natural or Artificial Opening (ICD-10-PCS; principal; 2018-03-17)
PROC: 5A1945Z Respiratory Ventilation, 24-96 Consecutive Hours (ICD-10-PCS; 2018-03-17)
PROC: 30233K1 Transfusion of Nonautologous Frozen Plasma into Peripheral Vein, Percutaneous Approach (ICD-10-PCS; 2018-03-18)
PROC: 3E0336Z Introduction of Nutritional Substance into Peripheral Vein, Percutaneous Approach (ICD-10-PCS; 2018-03-19)
DX: I60.6 Nontraumatic subarachnoid hemorrhage from other intracranial arteries (principal); G93.6 Cerebral edema; G91.9 Hydrocephalus, unspecified; J43.9 Emphysema, unspecified; I71.4 Abdominal aortic aneurysm, without rupture; R73.9 Hyperglycemia, unspecified; E83.51 Hypocalcemia; Z66 Do not resuscitate; F17.210 Nicotine dependence, cigarettes, uncomplicated; R40.2432 Glasgow coma scale score 3-8, at arrival to emergency department; Z51.5 Encounter for palliative care

== ENCOUNTER 2018-03-20 15:25 | Inpatient (IN) | payer OTHER ==
[2018-03-20] MEDS ORDERED: Albuterol-Ipratrop 3 mg / 0.5 (3 ml) UD INH PRN (16:32)
--- NOTE | 2018-03-20 17:07 | CP.PCM.HP ---
<Elaine Teresa - Last Filed: 03/20/18 18:36> History of Present Illness - History of Present Illness History of Present Illness: PGY-1 Elaine Teresa D.O. H&P for Dr. Overton's service: Patient is a 72 year old female with history of emphysema and AAA who was brought to the ED on 03/17/18 for headache and near syncope. Patient was found to have extensive SAH. She became unresponsive with hypotension and bradycardia in the ED and was intubated. Many of patients family members were present. They verbalized that patient's wishes were not to be on a ventilator. Therefore, the decision was made to terminally extubate. Over the next 2 days, patient became somewhat more responsive, and family wanted to pursue some treatment. Patient was transferred to the ICU. ICU discussed aggressive treatment with family and possible transfer to [place] for neurosurgical intervention; however, family expressed that patient really did not want aggressive care, and they would like to comply with her wishes. Palliative care and hospice were consulted. Patient's family agreed to pursue inpatient hospice care. Patient is presently intermittently verbal as per family. Family reports that she sleeps most of the day. Presently, patient is making unintelligible sounds and moving in the bed, picking at her gown. She does not follow verbal commands. ROS unobtainable. PMH: emphysema, AAA Meds: none PSH: tonsillectomy All: benzocaine, PCN FH: unobtainable SH: heavy smoker Present on Admission - Present on Admission Any Indicators Present on Admission: No History of DVT/PE: No History of Uncontrolled Diabetes: No Urinary Catheter: No Decubitus Ulcer Present: No History Surgical Site Infection Following: None Review of Systems - Review of Systems Systems not reviewed;Unavailable: Acuity of Condition, Altered Mental Status Past Patient History - Tetanus Immunizations Tetanus Immunization: Unknown - Past Medical History & Family History Past Medical History?: Yes - Past Social History Smoking Status: Heavy Smoker > 10 Cigarettes Daily - CARDIAC Hx Cardiac Disorders: No - PULMONARY Hx Emphysema: Yes - NEUROLOGICAL Hx Neurological Disorder: No - HEENT Hx HEENT Problems: No - RENAL Hx Chronic Kidney Disease: No - ENDOCRINE/METABOLIC Hx Endocrine Disorders: No - HEMATOLOGICAL/ONCOLOGICAL Hx Blood Disorders: No - INTEGUMENTARY Hx Dermatological Problems: No - MUSCULOSKELETAL/RHEUMATOLOGICAL Hx Musculoskeletal Disorders: No Hx Falls: No - GASTROINTESTINAL Other/Comment: gastric aneurysm - GENITOURINARY/GYNECOLOGICAL Hx Genitourinary Disorders: No - PSYCHIATRIC Hx Substance Use: No - SURGICAL HISTORY Hx Tonsillectomy: Yes - ANESTHESIA Hx Anesthesia: No Hx Anesthesia Reactions: No Meds Allergies/Adverse Reactions: Allergies Allergy/AdvReac Type Severity Reaction Status Date / Time benzocaine Allergy RASH Verified 03/17/18 08:37 Penicillins Allergy RASH Verified 03/18/18 13:38 Physical Exam - Constitutional Appears: No Acute Distress, Confused - Head Exam Head Exam: ATRAUMATIC, NORMAL INSPECTION - Eye Exam Eye Exam: PERRL - ENT Exam ENT Exam: Mucous Membranes Dry - Neck Exam Neck exam: Positive for: Normal Inspection - Respiratory Exam Respiratory Exam: Clear to Auscultation Bilateral, NORMAL BREATHING PATTERN. absent: Accessory Muscle Use, Respiratory Distress - Cardiovascular Exam Cardiovascular Exam: Tachycardia, REGULAR RHYTHM - GI/Abdominal Exam GI & Abdominal Exam: Soft. absent: Distended, Tenderness - Extremities Exam Extremities exam: Positive for: normal inspection - Neurological Exam Neurological exam: Altered - Skin Skin Exam: Dry, Normal Color, Warm Assessment & Plan - Assessment and Plan (Free Text) Assessment: Patient is a 72 yo female with a history of emphysema and AAA who presented with SAH on 03/17/18. Family decided on hospice care 03/20/18. Reasses on Thursday 03/23 for possible home hospice. 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 Intraventricular hemorrhage mildly distends the left lateral ventricle body and the 4th ventricle but also involves the right lateral ventricle and 3rd ventricles. Hydrocephalus appears to be developing due to intraventricular hemorrhage. There is a mild rightward midline shift of 4.2 mm. There is no deformity of the brainstem or edema at this time. Left frontal intraparenchymal hemorrhage exhibits limited local edema. - Repeat CT head 03/19: Redemonstrated is a large amount of subarachnoid hemorrhage within the suprasellar cistern extending into the lateral fissures and sylvian fissures. Subarachnoid hemorrhage extends anteriorly and superiorly into the interhemispheric fissure as well. A large left somewhat elliptical shaped hematoma left inferior frontal pole again noted which has diminished slightly however surrounding edema as undergone further demarcation and appears more conspicuous. The appearance and location of the hematoma in addition to extensive subarachnoid hemorrhage likely represents a ruptured anterior communicating artery with decompression of hemorrhage into the inferior frontal pole as well as the inferior aspect left frontal horn. Additionally, there are what appear to represent some curvilinear calcifications in the expected location of the left anterior communicating artery which could represent peripheral calcification about a partially thrombosed aneurysm. There is mild diffuse cerebral edema. Again noted is moderate hydrocephalus. - Extubated 03/17/18 - No vitals or labs - O2 via NC - Clear liquids as tolerated - Ice chips PRN dry mouth - Suction secretions PRN - Bladder scan and straight cath PRN for urinary retention - Duoneb BID ANNALISE, Q6H PRN - Morphine drip- titrate for comfort - Ativan 1mg Q6H PRN agitation - Tylenol 650 mg [place] Q6H PRN fever - Scopolomine patch Q3D PRN secretions - Pastoral care consult Case was discussed with attending, Dr. Overton. <Porsche Overton V - Last Filed: 03/21/18 20:38> Results - Vital Signs Recent Vital Signs: Last Vital Signs Temp Pulse Resp BP Pulse Ox 94 L 03/20/18 17:26 Attending/Attestation - Attestation I have personally seen and examined this patient.: Yes I have fully participated in the care of the patient.: Yes I have reviewed all pertinent clinical information: Yes Notes (Text): This is late computer entry for 03/20/18. Patient seen, examined and case discussed with manager medical device. Patient was admitted to [facility] following recent hospitalization as noted in resident note. Discussed with patient's family including grand-daughter, Aracelis, agree with DNR/DNI, discussed recommendations for hospice nurse. The plan is to observe patient while on inpatient hospice for possible home hospice on Friday.
[2018-03-20] MEDS: Albuterol-Ipratrop 3 mg / 0.5 (3 ml) UD INH SCH ×2 (19:57→22:39)
--- NOTE | 2018-03-21 04:18 | CP.PCM.PN ---
<Layne Fernandez - Last Filed: 03/21/18 04:12> Subjective - Date & Time of Evaluation Date of Evaluation: 03/21/18 Time of Evaluation: 04:12 - Subjective Subjective: Medicine Progress Note Patient seen and examined at bedside with daughter and granddaughter in law. Patient was asleep peacefully in bed. Per daughter patient was earlier agitated. But improved when IV lines were removed and later on she fell asleep. No acute changes otherwise. Objective - Vital Signs/Intake and Output Intake and Output: 03/20/18 03/21/18 18:59 06:59 Output Total 1400 Balance -1400 - Medications Medications: Current Medications Acetaminophen (Tylenol 650 Mg Supp) 650 mg [place] Q6 PRN PRN Reason: Fever >100.4 F Albuterol/Ipratropium (Duoneb 3 Mg/0.5 Mg (3 Ml) Ud) 3 ml INH RBID ANNALISE Last Admin: 03/20/18 22:39 Dose: 3 ml Albuterol/Ipratropium (Duoneb 3 Mg/0.5 Mg (3 Ml) Ud) 3 ml INH RQ6 PRN PRN Reason: Shortness of Breath Morphine Sulfate 250 mg/ (Dextrose) 250 mls @ 1 mls/hr IV .Q24H PRN; Protocol PRN Reason: hospice Lorazepam (Ativan) 1 mg IVP Q6H PRN PRN Reason: Agitation Scopolamine (Transderm-Scop) 1 patch TD Q3D PRN PRN Reason: secretions Assessment and Plan - Assessment and Plan (Free Text) Assessment: 72F w/ PMHx of emphysema and AAA presented with SAH on 03/17/18. Family agreed on hospice care 03/20/18. 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 Hydrocephalus. Mild midline shift (see complete report for details) - Repeat CT head 03/19: Redemonstrated is a large amount of SAH. mild diffuse cerebral edema. Again noted is moderate hydrocephalus. (see complete report for details) - Extubated 03/17/18 - No vitals or labs - O2 via NC - Clear liquids as tolerated - Ice chips PRN dry mouth - Suction secretions PRN - Bladder scan and straight cath PRN for urinary retention - cath placed 03/21 due to consistent urinary retention - Duoneb BID ANNALISE, Q6H PRN - Morphine drip- titrate for comfort - Ativan 1mg Q6H PRN agitation - Tylenol 650 mg [place] Q6H PRN fever - Scopolomine patch Q3D PRN secretions - Pastoral care consult dispo: f/u Thursday 03/23 for home hospice <Porsche Overton V - Last Filed: 03/21/18 20:40> Objective - Vital Signs/Intake and Output Vital Signs (last 24 hours): Temp Pulse Resp BP Pulse Ox 94 L 03/20/18 17:26 - Medications Medications: Current Medications Acetaminophen (Tylenol 650 Mg Supp) 650 mg [place] Q6 PRN PRN Reason: Fever >100.4 F Albuterol/Ipratropium (Duoneb 3 Mg/0.5 Mg (3 Ml) Ud) 3 ml INH RBID ANNALSIE Last Admin: 03/20/18 22:39 Dose: 3 ml Albuterol/Ipratropium (Duoneb 3 Mg/0.5 Mg (3 Ml) Ud) 3 ml INH RQ6 PRN PRN Reason: Shortness of Breath Emollient Ointment (Vaseline Oint) 0.5 gm TOP Q4 PRN PRN Reason: Dry LIPS Last Admin: 03/21/18 14:06 Dose: 0.5 gm Morphine Sulfate 250 mg/ (Dextrose) 250 mls @ 1 mls/hr IV .Q24H PRN; Protocol PRN Reason: hospice Last Admin: 03/21/18 14:06 Dose: 1 ml/hr, 1 mls/hr Lorazepam (Ativan) 1 mg IVP Q6H PRN PRN Reason: Agitation Scopolamine (Transderm-Scop) 1 patch TD Q3D PRN PRN Reason: secretions Attending/Attestation - Attestation I have personally seen and examined this patient.: Yes I have fully participated in the care of the patient.: Yes I have reviewed all pertinent clinical information, including history, physical exam and plan: Yes Notes (Text): Patient seen, examined this morning. Patient is under [facility] service. Patient has sustained subarachnoid hemorrhage in prior hospitalization. Patient appears comfortable. Will continue to monitor. Promotion of comfort care DNR/DNI. Family present at bedside. Assessment/Plan 1) Hospice Care 2) History of Subarachnoid Hemorrhage
[2018-03-21] MEDS: Petrolatum Oint Foilpak (5 gm) TOP PRN (14:06)
[2018-03-21] MEDS: Morphine Sulfate 250 MG in Dextrose 5% In Water 240 ML IV PRN (14:06)
--- NOTE | 2018-03-22 04:06 | CP.PCM.PN ---
Subjective - Date & Time of Evaluation Date of Evaluation: 03/22/18 Time of Evaluation: 04:06 - Subjective Subjective: Medicine Progress Note Objective - Vital Signs/Intake and Output Vital Signs (last 24 hours): Temp Pulse Resp BP Pulse Ox 99.7 F H 114 H 20 135/73 94 L 03/21/18 23:00 03/21/18 23:00 03/21/18 23:00 03/21/18 23:00 03/21/18 23:00 Intake and Output: 03/21/18 03/22/18 18:59 06:59 Intake Total 8 Output Total 250 Balance -242 - Medications Medications: Current Medications Acetaminophen (Tylenol 650 Mg Supp) 650 mg [place] Q6 PRN PRN Reason: Fever >100.4 F Albuterol/Ipratropium (Duoneb 3 Mg/0.5 Mg (3 Ml) Ud) 3 ml INH RBID ANNALISE Last Admin: 03/20/18 22:39 Dose: 3 ml Albuterol/Ipratropium (Duoneb 3 Mg/0.5 Mg (3 Ml) Ud) 3 ml INH RQ6 PRN PRN Reason: Shortness of Breath Emollient Ointment (Vaseline Oint) 0.5 gm TOP Q4 PRN PRN Reason: Dry LIPS Last Admin: 03/21/18 14:06 Dose: 0.5 gm Morphine Sulfate 250 mg/ (Dextrose) 250 mls @ 1 mls/hr IV .Q24H PRN; Protocol PRN Reason: hospice Last Admin: 03/21/18 14:06 Dose: 1 ml/hr, 1 mls/hr Lorazepam (Ativan) 1 mg IVP Q6H PRN PRN Reason: Agitation Scopolamine (Transderm-Scop) 1 patch TD Q3D PRN PRN Reason: secretions
[2018-03-22] MEDS: Petrolatum Oint Foilpak (5 gm) TOP PRN (04:59)
--- NOTE | 2018-03-22 16:52 | CP.PCM.PN ---
<Marla Angeles - Last Filed: 03/22/18 16:49> Subjective - Date & Time of Evaluation Date of Evaluation: 03/22/18 Time of Evaluation: 11:00 - Subjective Subjective: PGY-[address] Overton's service Patient seen and examined at bedside. Sleeping comfortable. Family at bedside had questions about hospice care. Wanted to speak with Dr. Overton. Dr. Overton spoke with family. Objective - Vital Signs/Intake and Output Vital Signs (last 24 hours): Temp Pulse Resp BP Pulse Ox 98.6 F 74 20 158/74 H 80 L 03/22/18 07:00 03/22/18 07:00 03/22/18 07:00 03/22/18 07:00 03/22/18 07:00 Intake and Output: 03/22/18 03/22/18 06:59 18:59 Intake Total 16 0 Output Total 300 600 Balance -284 -600 - Medications Medications: Current Medications Acetaminophen (Tylenol 650 Mg Supp) 650 mg AL Q6 PRN PRN Reason: Fever >100.4 F Last Admin: 03/22/18 04:54 Dose: 650 mg Albuterol/Ipratropium (Duoneb 3 Mg/0.5 Mg (3 Ml) Ud) 3 ml INH RBID ANNALISE Last Admin: 03/20/18 22:39 Dose: 3 ml Albuterol/Ipratropium (Duoneb 3 Mg/0.5 Mg (3 Ml) Ud) 3 ml INH RQ6 PRN PRN Reason: Shortness of Breath Emollient Ointment (Vaseline Oint) 0.5 gm TOP Q4 PRN PRN Reason: Dry LIPS Last Admin: 03/22/18 04:59 Dose: 0.5 gm Morphine Sulfate 250 mg/ (Dextrose) 250 mls @ 1 mls/hr IV .Q24H PRN; Protocol PRN Reason: hospice Last Admin: 03/21/18 14:06 Dose: 1 ml/hr, 1 mls/hr Lorazepam (Ativan) 1 mg IVP Q6H PRN PRN Reason: Agitation Scopolamine (Transderm-Scop) 1 patch TD Q3D PRN PRN Reason: secretions Assessment and Plan - Assessment and Plan (Free Text) Assessment: 72F w/ PMHx of emphysema and AAA presented with SAH on 03/17/18. Family agreed on hospice care 03/20/18. [facility] Subarachnoid hemorrhage suspect 2/[address] head on admission 03/17: Extensive subarachnoid hemorrhage is identified particularly involving the bilateral frontal and temporal lobes. Hydrocephalus. Mild midline shift (see complete report for details) Repeat CT head 03/19: Redemonstrated is a large amount of SAH. mild diffuse cerebral edema. Again noted is moderate hydrocephalus. (see complete report for details) Extubated 03/17/18 No vitals or labs O2 via NC Clear liquids as tolerated Ice chips PRN dry mouth Suction secretions PRN Bladder scan and straight cath PRN for urinary retention - cath placed 03/21 due to consistent urinary retention Duoneb BID ANNALISE, Q6H PRN Morphine drip- titrate for comfort Ativan 1mg Q6H PRN agitation Tylenol 650 mg AL Q6H PRN fever Scopolomine patch Q3D PRN secretions Pastoral care consult dispo: f/u Thursday 03/23 for home hospice PGY-1 Satyatawana Karthik Case d/w Dr. Overton <Porsche Overton V - Last Filed: 03/24/18 16:35> Objective - Vital Signs/Intake and Output Vital Signs (last 24 hours): Temp Pulse Resp BP Pulse Ox 102.9 F H 136 H 18 102/67 65 L 03/24/18 07:30 03/24/18 07:05 03/24/18 07:05 03/24/18 07:05 03/24/18 07:05 Intake and Output: 03/24/18 03/24/18 06:59 18:59 Intake Total 58 Output Total 200 250 Balance -142 -250 Attending/Attestation - Attestation I have personally seen and examined this patient.: Yes I have fully participated in the care of the patient.: Yes I have reviewed all pertinent clinical information, including history, physical exam and plan: Yes Notes (Text): This is late computer entry for 03/22/18. Patient seen, examined this morning. Patient is under [facility] service. No new recommendations when I checked the chart this morning. I spoke with family at bedside. Confirmed with we are trying to uphold goal of comfort for their loved one. Patient has sustained subarachnoid hemorrhage in prior hospitalization. Patient appears comfortable. Will continue to monitor while on Morphine drip. Patient does have PRNs as recommended by hospice on board. Promotion of comfort care DNR/DNI. Family present at bedside. Assessment/Plan 1) Hospice Care 2) History of Subarachnoid Hemorrhage
[2018-03-22] MEDS: Albuterol-Ipratrop 3 mg / 0.5 (3 ml) UD INH SCH (20:56)
[2018-03-23] MEDS: Petrolatum Oint Foilpak (5 gm) TOP PRN (06:17)
[2018-03-23] MEDS: Albuterol-Ipratrop 3 mg / 0.5 (3 ml) UD INH SCH ×2 (07:30→20:19)
--- NOTE | 2018-03-23 08:41 | CP.PCM.PN ---
Subjective - Date & Time of Evaluation Date of Evaluation: 03/23/18 Time of Evaluation: 08:45 - Subjective Subjective: PGy-[address] Sandro Doss Patient seen at bedside. No acute events. Patient remains on inpatient hospice/comfort care. Will follow up with case management regarding home hospice care. Objective - Vital Signs/Intake and Output Vital Signs (last 24 hours): Temp Pulse Resp BP Pulse Ox 100.3 F H 94 H 18 112/61 95 03/23/18 08:38 03/23/18 08:38 03/23/18 08:38 03/23/18 08:38 03/23/18 08:38 Intake and Output: 03/23/18 03/23/18 06:59 18:59 Intake Total 16 Output Total 620 Balance -604 - Medications Medications: Current Medications Acetaminophen (Tylenol 650 Mg Supp) 650 mg [place] Q6 PRN PRN Reason: Fever >100.4 F Last Admin: 03/23/18 06:17 Dose: 650 mg Albuterol/Ipratropium (Duoneb 3 Mg/0.5 Mg (3 Ml) Ud) 3 ml INH RBID ANNALISE Last Admin: 03/23/18 07:30 Dose: Not Given Albuterol/Ipratropium (Duoneb 3 Mg/0.5 Mg (3 Ml) Ud) 3 ml INH RQ6 PRN PRN Reason: Shortness of Breath Emollient Ointment (Vaseline Oint) 0.5 gm TOP Q4 PRN PRN Reason: Dry LIPS Last Admin: 03/23/18 06:17 Dose: 0.5 gm Morphine Sulfate 250 mg/ (Dextrose) 250 mls @ 1 mls/hr IV .Q24H PRN; Protocol PRN Reason: hospice Last Admin: 03/21/18 14:06 Dose: 1 ml/hr, 1 mls/hr Lorazepam (Ativan) 1 mg IVP Q6H PRN PRN Reason: Agitation Scopolamine (Transderm-Scop) 1 patch TD Q3D PRN PRN Reason: secretions Assessment and Plan - Assessment and Plan (Free Text) Assessment: 72F w/ PMHx of emphysema and AAA presented with SAH on 03/17/18. Family agreed on hospice care 03/20/18. [facility] Subarachnoid hemorrhage suspect 2/[address] head on admission 03/17: Extensive subarachnoid hemorrhage is identified particularly involving the bilateral frontal and temporal lobes. Hydrocephalus. Mild midline shift (see complete report for details) Repeat CT head 03/19: Redemonstrated is a large amount of SAH. mild diffuse cerebral edema. Again noted is moderate hydrocephalus. (see complete report for details) Extubated 03/17/18 No vitals or labs O2 via NC Clear liquids as tolerated Ice chips PRN dry mouth Suction secretions PRN Bladder scan and straight cath PRN for urinary retention - cath placed 03/21 due to consistent urinary retention Duoneb BID ANNALISE, Q6H PRN Morphine drip- titrate for comfort Ativan 1mg Q6H PRN agitation Tylenol 650 mg [place] Q6H PRN fever Scopolomine patch Q3D PRN secretions Pastoral care consult dispo: f/u for home hospice Case d/w Dr. Sandro Pa, PGY-1
[2018-03-24] MEDS: Morphine Sulfate 250 MG in Dextrose 5% In Water 240 ML IV PRN (01:37)
[2018-03-24 02:58] VITALS: PULSE 136
[2018-03-24 07:42] VITALS: BP 102/67; RESP 18; TEMP 102.9; O2SAT 65
--- NOTE | 2018-03-24 12:33 | CP.PCM.PRO ---
Pronouncement of Note - Clinical Findings Physical Exam: No Response Verbal/Painful Stimuli, Absent Peripheral Puls es{Carotid & Femoral}, Absent Heart & Breath Sounds, No Pupillary Light Reflex, No Corneal Reflex, Pupils Fixed & Dilated, Absence of Vital Signs - Pronouncement Time Time of Pronouncement of : 12:00 - Notifications Pronouncement Notifications: Family Notified, Atending Notified Table Assembler Notified: No - Autopsy Autopsy Requested: No - [place] [id number]
--- NOTE | 2018-03-24 12:45 | CP.PCM.DIS ---
Provider - Provider Date of Admission: 03/20/18 15:25 Attending physician: Hira Doss MD Consults: 03/20/18 16:28 Pastoral Care Referral Routine Comment: Physician Instructions: Reason For Exam: hospice Time Spent in preparation of Discharge (in minutes): 45 Hospital Course - Hospital Course Hospital Course: Initial HPI: Patient is a 72 year old female with history of emphysema and AAA who was brought to the ED on 03/17/18 for headache and near syncope. Patient was found to have extensive SAH. She became unresponsive with hypotension and bradycardia in the ED and was intubated. Many of patients family members were present. They verbalized that patient's wishes were not to be on a ventilator. Therefore, the decision was made to terminally extubate. Over the next 2 days, patient became somewhat more responsive, and family wanted to pursue some treatment. Patient was transferred to the ICU. ICU discussed aggressive treatment with family and possible transfer to [place] for neurosurgical intervention; however, family expressed that patient really did not want aggressive care, and they would like to comply with her wishes. Palliative care and hospice were consulted. Patient's family agreed to pursue inpatient hospice care. Patient is presently intermittently verbal as per family. Family reports that she sleeps most of the day. Presently, patient is making unintelligible sounds and moving in the bed, picking at her gown. She does not follow verbal commands. ROS unobtainable. Hospital Course: During this hospitalization, patient was placed on inpatient hospice care under the support of [facility]. She had originally been hospitalized and found to have extensive subarachnoid hemorrhage. Per the wishes of patient's family, agg ressive interventions were not pursued and patient placed on inpatient hospice at [facility]. Patient was placed on morphine drip for comfort care and her was pronounced on 03/24/2018 at 12:00 PM, [place] EDRS . Family was made aware of the pronouncement and patient's PMD "Alex Yepez" was notified via phone. Discharge Exam - Head Exam Head Exam: ATRAUMATIC, NORMOCEPHALIC - Eye Exam Pupil Exam: Fixed - Respiratory Exam Additional comments: absent breath sounds - Cardiovascular Exam Additional comments: absent heart sounds - Neurological Exam Additional comments: Unresponsive to verbal cues or painful stimulus - Skin Skin Exam: Pallor Discharge Plan - Follow Up Plan Condition: GOOD Disposition: HOME/ ROUTINE
== END 2018-03-24 14:35 | DRG 64 ==
LOC: C.9I 15:25 → C.6T 03-21 15:04
PROVIDERS: ADMIT Hospitalist; ATTEND Family Medicine
DX: I60.7 Nontraumatic subarachnoid hemorrhage from unspecified intracranial artery (principal); G93.6 Cerebral edema; G91.9 Hydrocephalus, unspecified; Z51.5 Encounter for palliative care; Z66 Do not resuscitate; J43.9 Emphysema, unspecified; F17.210 Nicotine dependence, cigarettes, uncomplicated